=== PATIENT | female | born 1970 | race Caucasian/White ===

== ENCOUNTER → 2016-10-07 | Outpatient (CLI) | payer OTHER ==
[~2016-10-07] MED LIST: ALPR-475 PO; AMOX1TAB64 PO; CEPH-368 PO; IBUP200C PO; ONDA4TAB7 PO; OXYC-229 PO; OXYC1TAB7 PO; OXYC5CAP4 PO; SERT50TA PO; SINCALIDE (KINEVAC) 5 MCG ONE; SULF1TAB24 PO
== END | disposition home or self-care (01) ==
LOC: PETCFH 07:55
PROVIDERS: ATTEND Specialist
DX: C50.012 Malignant neoplasm of nipple and areola, left female breast (principal)
CPT/HCPCS: 78306; A9503; J2805

== ENCOUNTER → 2016-10-07 | Outpatient (CLI) | payer OTHER ==
[~2016-10-07] MED LIST changes: +OMNIPAQUE 350 MG/ML, 100ML BOTTLE ONE; -SINCALIDE (KINEVAC) 5 MCG ONE
== END | disposition home or self-care (01) ==
LOC: CFH 07:58
PROVIDERS: ATTEND Specialist
DX: C50.012 Malignant neoplasm of nipple and areola, left female breast (principal); N83.202 Unspecified ovarian cyst, left side; K43.9 Ventral hernia without obstruction or gangrene; Z90.13 Acquired absence of bilateral breasts and nipples
CPT/HCPCS: 71260; 74177; Q9967

== ENCOUNTER → 2017-07-23 | Outpatient (CLI) | payer OTHER ==
[~2017-07-23] MED LIST changes: -IBUP200C PO; +IBUP200C5 PO; -OMNIPAQUE 350 MG/ML, 100ML BOTTLE ONE; -OXYC-229 PO; +OXYC-307 PO; +OXYC5CAP2 PO; -OXYC5CAP4 PO
== END | disposition home or self-care (01) ==
LOC: PETCFH 09:28
PROVIDERS: ATTEND Specialist
DX: C50.012 Malignant neoplasm of nipple and areola, left female breast (principal); M85.9 Disorder of bone density and structure, unspecified; Z15.01 Genetic susceptibility to malignant neoplasm of breast
CPT/HCPCS: 78306; A9503

== ENCOUNTER → 2017-07-23 | Outpatient (CLI) | payer OTHER ==
[~2017-07-23] MED LIST changes: +OMNIPAQUE 350 MG/ML, 100ML BOTTLE ONE
== END | disposition home or self-care (01) ==
LOC: CFH 09:30
PROVIDERS: ATTEND Specialist
DX: R92.8 Other abnormal and inconclusive findings on diagnostic imaging of breast (principal); K76.89 Other specified diseases of liver; M85.9 Disorder of bone density and structure, unspecified; C50.012 Malignant neoplasm of nipple and areola, left female breast; Z15.01 Genetic susceptibility to malignant neoplasm of breast
CPT/HCPCS: 71260; 74177; Q9967

== ENCOUNTER → 2017-07-25 | Outpatient (CLI) | payer OTHER ==
[~2017-07-25] MED LIST changes: -OMNIPAQUE 350 MG/ML, 100ML BOTTLE ONE
== END ==
LOC: CFH 13:33
PROVIDERS: ATTEND Surgery
DX: N63.20 Unspecified lump in the left breast, unspecified quadrant (principal); Z90.13 Acquired absence of bilateral breasts and nipples

== ENCOUNTER 2017-08-27 11:32 | Day surgery (SDC) | payer OTHER ==
[~2017-08-27] VITALS: Ht 157.5 cm; Wt 99.5 kg
[2017-08-27] MEDS ORDERED: LACTATED RINGERS 1,000 ML IV SCH (12:16)
[2017-08-27] MEDS ORDERED: SERT100T PO (12:21)
[2017-08-27] MEDS ORDERED: GABA600T2 PO (12:21)
[2017-08-27] MEDS ORDERED: HYDR-3237 PO (12:21)
[2017-08-27 12:24] VITALS: BP 128/87
[2017-08-27] MEDS ORDERED: PLEASE ENTER HEIGHT AND WEIGHT MC SCH (12:30)
[2017-08-27] MEDS ORDERED: HEPARIN 1,000 UNITS/ML, 10ML ONE (12:57)
[2017-08-27] MEDS ORDERED: EPINEPHRINE 1 MG/ML, 1ML ONE (12:57)
[2017-08-27] MEDS ORDERED: BUPIVACAINE/PF 0.5% ONE (12:57)
[2017-08-27] MEDS ORDERED: DEXAMETHASONE 4 MG/ML, 1ML ONE (13:45)
[2017-08-27] MEDS ORDERED: PROPOFOL 10 MG/ML, 20ML ONE ×2 (13:45→14:27)
[2017-08-27] MEDS ORDERED: CEFAZOLIN 1,000 MG ONE (13:45)
[2017-08-27] MEDS ORDERED: ONDANSETRON 2MG/ML, 2ML ONE (13:45)
[2017-08-27] MEDS ORDERED: BUPIVACAINE/PF-EPI 0.5% 1:200K IM ONE (14:08)
[2017-08-27] MEDS ORDERED: HEPARIN 1,000 UNITS/ML, 10ML PERMACATH ONE (14:08)
[2017-08-27] MEDS ORDERED: ACETAMINOPHEN 325 MG TABLET PO PRN (15:00)
[2017-08-27] MEDS ORDERED: morphine SULFATE 10 MG/ML, 1ML IV PRN (15:00)
[2017-08-27] MEDS ORDERED: HYDROcodone/APAP 7.5-325MG/15ML UDC PO PRN (15:00)
[2017-08-27] MEDS ORDERED: OXYcodone 5 MG/5 ML ORAL.SOL UDC PO PRN (15:00)
[2017-08-27] MEDS ORDERED: HYDROmorphone 1 MG/ML, 1ML IV PRN (15:00)
[2017-08-27] MEDS ORDERED: MEPERIDINE/PF 25MG/0.5ML IVPush PRN (15:00)
[2017-08-27] MEDS ORDERED: KETOROLAC 30 MG/1 ML IV PRN ×2 (15:00)
[2017-08-27] MEDS ORDERED: FENTANYL PF 100 MCG/2ML IV PRN (15:00)
[2017-08-27] MEDS ORDERED: EPHEDRINE 50 MG/ML, 1ML ONE (16:09)
[2017-08-27] MEDS ORDERED: SUCCINYLCHOLINE 20 MG/ML, 10ML ONE (16:09)
== END 2017-08-27 16:00 | disposition home or self-care (01) ==
LOC: OUT 11:32
PROVIDERS: ATTEND Surgery
DX: Z45.2 Encounter for adjustment and management of vascular access device (principal); C50.919 Malignant neoplasm of unspecified site of unspecified female breast; Z88.8 Allergy status to other drugs, medicaments and biological substances; Z98.890 Other specified postprocedural states; Z87.891 Personal history of nicotine dependence
CPT/HCPCS: 36561; 71045; 77001; C1788; J0171; J0330; J0690; J1100; J1644; J2405; J2704; J3490; J7120

== ENCOUNTER → 2017-10-03 | Outpatient (CLI) | payer OTHER ==
[~2017-10-03] MED LIST changes: +GABA600T2 PO; +HYDR-3237 PO; +SERT100T PO
== END ==
LOC: ROC 08:26
PROVIDERS: ATTEND Radiology Radiation Oncology
DX: Z02.9 Encounter for administrative examinations, unspecified (principal)

== ENCOUNTER → 2017-10-06 | Outpatient (CLI) | payer OTHER | LOC: RAD 15:28 | PROVIDERS: ATTEND Specialist | DX: M79.89 Other specified soft tissue disorders (principal); C50.012 Malignant neoplasm of nipple and areola, left female breast ==

== ENCOUNTER → 2017-10-23 | Outpatient (CLI) | payer OTHER | END | disposition home or self-care (01) | LOC: RAD 09:19 | PROVIDERS: ATTEND Specialist | DX: R16.2 Hepatomegaly with splenomegaly, not elsewhere classified (principal); C50.012 Malignant neoplasm of nipple and areola, left female breast | CPT/HCPCS: 76705 ==

== ENCOUNTER → 2017-10-28 | Outpatient (CLI) | payer OTHER ==
[~2017-10-28] MED LIST changes: +OMNIPAQUE 350 MG/ML, 100ML BOTTLE ONE
== END | disposition home or self-care (01) ==
LOC: RAD 12:01
PROVIDERS: ATTEND Specialist
DX: R92.2 Inconclusive mammogram (principal); R16.1 Splenomegaly, not elsewhere classified; M85.9 Disorder of bone density and structure, unspecified; C77.3 Secondary and unspecified malignant neoplasm of axilla and upper limb lymph nodes; C50.012 Malignant neoplasm of nipple and areola, left female breast; D70.1 Agranulocytosis secondary to cancer chemotherapy
CPT/HCPCS: 71260; 74160; J1642; Q9967

== ENCOUNTER → 2017-11-18 | Outpatient (CLI) | payer OTHER ==
[~2017-11-18] MED LIST changes: -OMNIPAQUE 350 MG/ML, 100ML BOTTLE ONE
== END | disposition home or self-care (01) ==
LOC: RAD 09:55
PROVIDERS: ATTEND Specialist
DX: R16.2 Hepatomegaly with splenomegaly, not elsewhere classified (principal); C50.012 Malignant neoplasm of nipple and areola, left female breast
CPT/HCPCS: 76700

== ENCOUNTER 2017-12-02 12:03 | Emergency (ER) | payer OTHER ==
[~2017-12-02] VITALS: Ht 157.5 cm; Wt 101.4 kg
[2017-12-02] VITALS (8 sets, daily range): BP systolic 112–128; BP diastolic 54–78
[2017-12-02 13:22] LABS: MEAN CORPUSCULAR HEMOGLOBIN 32.5 pg (27.0-34.8); MEAN CORPUSCULAR VOLUME 92.7 fL (80-100); RED CELL DISTRIBUTION WIDTH 21.7 % (9.6-15.2)
[2017-12-02 13:28] LABS: ALANINE AMINOTRANSFERASE 55 U/L (12-78); ALBUMIN 3.6 g/dL (3.4-5.0); ANION GAP 8 mmol/L (5-15); CALCIUM 8.5 mg/dL (8.5-10.1); CHLORIDE 110 mmol/L (98-107)
[2017-12-02] MEDS ORDERED: ACETAMINOPHEN 325 MG TABLET PO ONE (13:30)
[2017-12-02] MEDS ORDERED: DIPHENHYDRAMINE 50 MG/ML, 1ML IVPush ONE (13:30)
[2017-12-02 13:31] LABS: ALKALINE PHOSPHATASE 142 U/L (45-117); BILIRUBIN,TOTAL 0.5 mg/dL (0.2-1.0); CREATININE 0.72 mg/dL (0.55-1.02); TOTAL PROTEIN 6.4 g/dL (6.4-8.2)
[2017-12-02] MEDS ORDERED: DIPHENHYDRAMINE 50 MG/ML, 1ML ONE (13:40)
[2017-12-02] MEDS ORDERED: ACETAMINOPHEN 325 MG TABLET ONE (13:40)
[2017-12-02 13:45] LABS: MD YES; MEAN PLATELET VOLUME 5.7 fL (7.4-10.4); PLATELET COUNT 85 x10^3/uL (130-400)
[2017-12-02 13:48] LABS: ANISOCYTOSIS 2+; BASOS#(MANUAL) 0.02 x10^3/uL (0-0.1); BASOS% (MANUAL) 1 % (0-1); EOS#(MANUAL) 0.02 x10^3/uL (0.0-0.4); EOS% (MANUAL) 1 % (1-7); LYMPH#(MANUAL) 0.72 x10^3/uL (1-3.4); LYMPHS% (MANUAL) 30 % (22-44); MONOS% (MANUAL) 4 % (2-9); OVALOCYTES 1+; SEG#(MANUAL) 1.54 x10^3/uL (1.8-6.8); SEGS% (MANUAL) 64 % (42-75); TEAR DROPS 1+
[2017-12-02 13:49] LABS: <PLATELET ESTIMATE> DECREASED; SMALL PLATELETS 1+
[2017-12-02 13:50] LABS: TOXIC GRAN 1+
== END 2017-12-02 18:05 | disposition home or self-care (01) ==
LOC: ED 13:34
DX: D61.1 Drug-induced aplastic anemia (principal); C50.919 Malignant neoplasm of unspecified site of unspecified female breast; Z90.10 Acquired absence of unspecified breast and nipple; Z88.8 Allergy status to other drugs, medicaments and biological substances; Z88.6 Allergy status to analgesic agent
CPT/HCPCS: 36415; 36430; 76700; 80053; 85025; 86850; 86900; 86923; 96374; 99285; J1200; P9040

== ENCOUNTER → 2017-12-10 | Outpatient (CLI) | payer OTHER | END | disposition home or self-care (01) | LOC: PETCFH 08:34 | PROVIDERS: ATTEND Specialist | DX: C50.012 Malignant neoplasm of nipple and areola, left female breast (principal) | CPT/HCPCS: 78815; A9552 ==

== ENCOUNTER 2017-12-30 11:49 | Emergency (ER) | payer OTHER ==
[2017-12-30] VITALS (9 sets, daily range): BP systolic 99–123; BP diastolic 43–62
[~2017-12-30] VITALS: Ht 157.5 cm; Wt 101.0 kg
[~2017-12-30 11:49] MED LIST changes: +IBUP-1623 PO; -IBUP200C5 PO
[2017-12-30] MEDS ORDERED: SODIUM CHLORIDE 0.9% 500 ML IV ONE (12:13)
[2017-12-30 13:51] LABS: MEAN CORPUSCULAR HEMOGLOBIN 33.2 pg (27.0-34.8); MEAN CORPUSCULAR HGB CONC 34.7 g/dL (32.4-35.8); MEAN CORPUSCULAR VOLUME 95.8 fL (80-100); MEAN PLATELET VOLUME 10.1 fL (7.4-10.4); RED BLOOD COUNT 1.98 x10^6/uL (3.82-5.3); RED CELL DISTRIBUTION WIDTH 21.5 % (9.6-15.2)
[2017-12-30 13:54] LABS: PLATELET COUNT 9 x10^3/uL (130-400)
[2017-12-30] MEDS ORDERED: ACETAMINOPHEN 500 MG TABLET ONE (13:55)
[2017-12-30] MEDS ORDERED: DIPHENHYDRAMINE 50 MG/ML, 1ML ONE (13:55)
[2017-12-30] MEDS ORDERED: DIPHENHYDRAMINE 25 MG CAPSULE ONE (13:56)
[2017-12-30 14:00] LABS: MD SCAN
[2017-12-30] MEDS ORDERED: ACETAMINOPHEN 500 MG TABLET PO ONE (14:00)
[2017-12-30] MEDS ORDERED: DIPHENHYDRAMINE 50 MG/ML, 1ML IVPush ONE (14:00)
[2017-12-30 14:10] LABS: BASOPHILS # (AUTO) 0.01 x10^3/uL (0-0.1); BASOPHILS % (AUTO) 0 % (0-1); EOSINOPHILS # (AUTO) 0.01 x10^3/uL (0-0.4); EOSINOPHILS % (AUTO) 0 % (1-7); LYMPHOCYTES # (AUTO) 0.81 x10^3/uL (1-3.4); LYMPHOCYTES % (AUTO) 15 % (22-44); MONOCYTES # (AUTO) 0.15 x10^3/uL (0.2-0.8); MONOCYTES % (AUTO) 3 % (2-9); NEUTROPHILS # (AUTO) 4.33 x10^3/uL (1.8-6.8); NEUTROPHILS % (AUTO) 82 % (42-75)
== END 2017-12-30 18:37 | disposition home or self-care (01) ==
LOC: ED 13:49
DX: D64.81 Anemia due to antineoplastic chemotherapy (principal); D69.59 Other secondary thrombocytopenia
CPT/HCPCS: 36415; 85025; 86850; 86900; 86923; 96374; 99284; J1200; P9037; P9040

== ENCOUNTER 2018-01-01 05:45 | Emergency (ER) | payer OTHER ==
[~2018-01-01] VITALS: Ht 157.5 cm; Wt 101.2 kg
[2018-01-01] MEDS ORDERED: PROPARACAINE OPHTH 0.5%, 15ML ONE (06:08)
[2018-01-01 07:07] LABS: ALBUMIN 3.7 g/dL (3.4-5.0); ANION GAP 11 mmol/L (5-15); CALCIUM 8.5 mg/dL (8.5-10.1); CHLORIDE 109 mmol/L (98-107); CREATININE 0.81 mg/dL (0.55-1.02)
[2018-01-01 07:37] VITALS: BP 123/73
[2018-01-01 08:15] LABS: BASOPHILS % (AUTO) 0 % (0-1); EOSINOPHILS # (AUTO) 0.01 x10^3/uL (0-0.4); EOSINOPHILS % (AUTO) 0 % (1-7); LYMPHOCYTES # (AUTO) 0.54 x10^3/uL (1-3.4); LYMPHOCYTES % (AUTO) 13 % (22-44); MD SCAN; MEAN CORPUSCULAR HEMOGLOBIN 33.2 pg (27.0-34.8); MEAN CORPUSCULAR HGB CONC 35.6 g/dL (32.4-35.8); MEAN CORPUSCULAR VOLUME 93.2 fL (80-100); MEAN PLATELET VOLUME 8.5 fL (7.4-10.4); MONOCYTES # (AUTO) 0.23 x10^3/uL (0.2-0.8); MONOCYTES % (AUTO) 6 % (2-9); NEUTROPHILS # (AUTO) 3.39 x10^3/uL (1.8-6.8); NEUTROPHILS % (AUTO) 81 % (42-75); RED BLOOD COUNT 2.56 x10^6/uL (3.82-5.3); RED CELL DISTRIBUTION WIDTH 19.2 % (9.6-15.2)
[2018-01-01 08:19] LABS: PLATELET COUNT 21 x10^3/uL (130-400)
== END 2018-01-01 09:51 | disposition home or self-care (01) ==
LOC: ED 07:59
DX: H20.012 Primary iridocyclitis, left eye (principal); D69.59 Other secondary thrombocytopenia; Z87.891 Personal history of nicotine dependence
CPT/HCPCS: 36415; 71045; 80048; 81373; 81374; 82040; 82164; 85025; 85549; 86480; 86592; 86780; 87798; 99285

== ENCOUNTER → 2018-01-06 | Outpatient (CLI) | payer OTHER ==
[~2018-01-06] MED LIST changes: +GADOBUTROL 10 MMOL/10 ML PFS ONE
== END | disposition home or self-care (01) ==
LOC: CFH 14:53
PROVIDERS: ATTEND Specialist
DX: C50.012 Malignant neoplasm of nipple and areola, left female breast (principal); H54.7 Unspecified visual loss; Z87.891 Personal history of nicotine dependence
CPT/HCPCS: 70553; A9585

== ENCOUNTER 2018-01-25 15:05 | Observation (INO) | payer OTHER ==
[~2018-01-25] VITALS: Ht 157.5 cm; Wt 103.4 kg
[2018-01-25] VITALS (8 sets, daily range): BP systolic 98–138; BP diastolic 61–71
[~2018-01-25 15:05] MED LIST changes: -GADOBUTROL 10 MMOL/10 ML PFS ONE
[2018-01-25] MEDS ORDERED: [UNRECOGNIZED DRUG - CODE] IV (15:59)
[2018-01-25] MEDS ORDERED: GEMC200V IV (15:59)
[2018-01-25 16:06] LABS: ALBUMIN 3.6 g/dL (3.4-5.0); ANION GAP 5 mmol/L (5-15); CALCIUM 8.7 mg/dL (8.5-10.1); CHLORIDE 109 mmol/L (98-107); CREATININE 0.91 mg/dL (0.55-1.02)
[2018-01-25 16:14] LABS: MEAN CORPUSCULAR HEMOGLOBIN 34.8 pg (27.0-34.8); MEAN CORPUSCULAR HGB CONC 35.4 g/dL (32.4-35.8); MEAN CORPUSCULAR VOLUME 98.1 fL (80-100); MEAN PLATELET VOLUME 7.3 fL (7.4-10.4); RED BLOOD COUNT 1.95 x10^6/uL (3.82-5.3); RED CELL DISTRIBUTION WIDTH 22.7 % (9.6-15.2)
[2018-01-25 16:17] LABS: PLATELET COUNT 38 x10^3/uL (130-400)
[2018-01-25 16:35] LABS: MD YES
[2018-01-25 16:39] LABS: ANISOCYTOSIS 1+; BAND#(MANUAL) 1.95 x10^3/uL; BANDS%(MANUAL) 25 % (0-7); LYMPH#(MANUAL) 0.47 x10^3/uL (1-3.4); LYMPHS% (MANUAL) 6 % (22-44); MONOS#(MANUAL) 0.16 x10^3/uL (0.3-2.7); MONOS% (MANUAL) 2 % (2-9); SEG#(MANUAL) 5.23 x10^3/uL (1.8-6.8); SEGS% (MANUAL) 67 % (42-75)
[2018-01-25 16:40] LABS: OVALOCYTES 1+
[2018-01-25 16:41] LABS: TOXIC GRAN 2+
[2018-01-25 16:42] LABS: <PLATELET ESTIMATE> DECREASED; <PLT MORPHOLOGY> NORMAL PLT MORPH; POLYCHROMASIA 1+
[2018-01-25] MEDS ORDERED: LABETALOL 5MG/ML, 20ML IVPush PRN (18:00)
[2018-01-25] MEDS ORDERED: DOCUSATE 100 MG CAPSULE PO PRN (18:00)
[2018-01-25] MEDS ORDERED: ZOLPIDEM 5MG TABLET PO PRN (18:00)
[2018-01-25] MEDS ORDERED: ONDANSETRON ODT 4 MG PO PRN (18:00)
[2018-01-25] MEDS ORDERED: ACETAMINOPHEN 325 MG TABLET PO PRN (18:00)
[2018-01-25] MEDS ORDERED: HYDROcodone/APAP 5/325 TABLET PO SCH (21:00)
[2018-01-25] MEDS: GABAPENTIN 300 MG CAPSULE PO SCH (22:22)
[2018-01-25] MEDS: FAMOTIDINE 20 MG TABLET PO SCH (22:22)
[2018-01-25] MEDS: HYDROcodone/APAP 10/325 MG TABLET PO PRN (22:22)
[2018-01-26] VITALS (10 sets, daily range): BP systolic 98–116; BP diastolic 58–72
[2018-01-26] MEDS: HYDROcodone/APAP 10/325 MG TABLET PO PRN ×2 (05:26→10:09)
[2018-01-26 05:48] LABS: ANION GAP 7 mmol/L (5-15); CALCIUM 8.7 mg/dL (8.5-10.1); CHLORIDE 110 mmol/L (98-107)
[2018-01-26 05:50] LABS: CREATININE 0.89 mg/dL (0.55-1.02)
[2018-01-26 05:58] LABS: MEAN CORPUSCULAR HEMOGLOBIN 33.8 pg (27.0-34.8); MEAN CORPUSCULAR VOLUME 96.3 fL (80-100); RED BLOOD COUNT 2.37 x10^6/uL (3.82-5.3); RED CELL DISTRIBUTION WIDTH 21.7 % (9.6-15.2)
[2018-01-26 06:00] LABS: MEAN PLATELET VOLUME 9.3 fL (7.4-10.4); PLATELET COUNT 25 x10^3/uL (130-400)
[2018-01-26 06:14] LABS: MD YES
[2018-01-26 06:16] LABS: ANISOCYTOSIS 1+; BAND#(MANUAL) 0.51 x10^3/uL; BANDS%(MANUAL) 6 % (0-7); LYMPH#(MANUAL) 0.94 x10^3/uL (1-3.4); LYMPHS% (MANUAL) 11 % (22-44); MONOS#(MANUAL) 0.34 x10^3/uL (0.3-2.7); MONOS% (MANUAL) 4 % (2-9); SEG#(MANUAL) 6.72 x10^3/uL (1.8-6.8); SEGS% (MANUAL) 79 % (42-75)
[2018-01-26 06:17] LABS: <PLATELET ESTIMATE> DECREASED; <PLT MORPHOLOGY> NORMAL PLT MORPH; OVALOCYTES 1+
[2018-01-26 06:18] LABS: TOXIC GRAN 1+
[2018-01-26] MEDS ORDERED: SERTRALINE 100MG TABLET PO SCH (09:00)
[2018-01-26] MEDS: GABAPENTIN 300 MG CAPSULE PO SCH (10:00)
[2018-01-26] MEDS: FAMOTIDINE 20 MG TABLET PO SCH (10:00)
== END 2018-01-26 16:58 | disposition home or self-care (01) ==
LOC: ED 16:33 → INTOOBSV 16:50 → EDIP 16:50 → 3NW 18:03
PROVIDERS: ADMIT Internal Medicine; ATTEND Internal Medicine
DX: D63.8 Anemia in other chronic diseases classified elsewhere (principal); F41.9 Anxiety disorder, unspecified; C50.919 Malignant neoplasm of unspecified site of unspecified female breast; E66.9 Obesity, unspecified; Z85.3 Personal history of malignant neoplasm of breast; Z90.13 Acquired absence of bilateral breasts and nipples
CPT/HCPCS: 36415; 36430; 80048; 82040; 85025; 86850; 86900; 86923; 93005; 99285; G0378; P9040

== ENCOUNTER → 2018-01-27 | Outpatient (CLI) | payer OTHER ==
[~2018-01-27] MED LIST changes: +GADOBUTROL 10 MMOL/10 ML VIAL ONE; +GEMC200V IV; +[UNRECOGNIZED DRUG - CODE] IV
== END | disposition home or self-care (01) ==
LOC: CFH 14:42
PROVIDERS: ATTEND Specialist
DX: R22.2 Localized swelling, mass and lump, trunk (principal); C50.012 Malignant neoplasm of nipple and areola, left female breast
CPT/HCPCS: A9585; C8908

== ENCOUNTER 2018-02-18 16:12 | Emergency (ER) | payer OTHER ==
[~2018-02-18] VITALS: Ht 157.5 cm; Wt 102.4 kg
[~2018-02-18 16:12] MED LIST changes: -GADOBUTROL 10 MMOL/10 ML VIAL ONE
[2018-02-18 17:28] LABS: ALBUMIN 3.8 g/dL (3.4-5.0); ANION GAP 10 mmol/L (5-15); CALCIUM 8.8 mg/dL (8.5-10.1); CHLORIDE 108 mmol/L (98-107); CREATININE 0.97 mg/dL (0.55-1.02)
[2018-02-18 17:31] LABS: ALANINE AMINOTRANSFERASE 55 U/L (12-78); ALKALINE PHOSPHATASE 250 U/L (45-117); TOTAL PROTEIN 6.9 g/dL (6.4-8.2)
[2018-02-18 18:47] LABS: MEAN CORPUSCULAR HEMOGLOBIN 35.5 pg (27.0-34.8); MEAN CORPUSCULAR HGB CONC 33.9 g/dL (32.4-35.8); MEAN CORPUSCULAR VOLUME 104.8 fL (80-100); MEAN PLATELET VOLUME 7.6 fL (7.4-10.4); PLATELET COUNT 61 x10^3/uL (130-400); RED BLOOD COUNT 2.23 x10^6/uL (3.82-5.3); RED CELL DISTRIBUTION WIDTH 27.6 % (9.6-15.2)
[2018-02-18 18:48] LABS: MD YES
[2018-02-18 18:49] LABS: BANDS%(MANUAL) 11 % (0-7); LYMPH#(MANUAL) 1.15 x10^3/uL (1-3.4); LYMPHS% (MANUAL) 3 % (22-44); METAMYELOCYTES# (MANUAL) 0.76 x10^3/uL (0-0); METAMYELOCYTES% (MANUAL) 2 % (0-1); MONOS#(MANUAL) 1.53 x10^3/uL (0.3-2.7); MONOS% (MANUAL) 4 % (2-9); SEG#(MANUAL) 30.56 x10^3/uL (1.8-6.8); SEGS% (MANUAL) 80 % (42-75)
[2018-02-18 18:50] LABS: ANISOCYTOSIS 2+; MICROCYTOSIS 1+; OVALOCYTES 1+; POLYCHROMASIA 1+
[2018-02-18 18:51] LABS: <PLATELET ESTIMATE> DECREASED; <PLT MORPHOLOGY> NORMAL PLT MORPH; TEAR DROPS 1+; TOXIC GRAN 1+
[2018-02-18 20:24] VITALS: BP 116/53
[2018-02-18 20:40] VITALS: BP 114/56
[2018-02-18 22:15] VITALS: BP 131/60
[2018-02-18 22:31] VITALS: BP 131/60
[2018-02-18 22:45] VITALS: BP 214/54
[2018-02-18 23:20] VITALS: BP 125/74
[2018-02-19] VITALS: BP 131/74
== END 2018-02-19 00:07 | disposition home or self-care (01) ==
LOC: ED 18:50
DX: D64.81 Anemia due to antineoplastic chemotherapy (principal); C50.919 Malignant neoplasm of unspecified site of unspecified female breast
CPT/HCPCS: 36415; 36430; 80053; 85025; 86850; 86900; 86923; 99285; P9040

== ENCOUNTER 2018-03-15 16:59 | Inpatient (IN) | payer OTHER ==
[~2018-03-15] VITALS: Ht 157.5 cm; Wt 104.5 kg
[2018-03-15] MEDS ORDERED: AMPICILLIN/SULBACTAM 3 GM in SODIUM CHLORIDE 0.9% 100 ML IVPB ONE (18:00)
[2018-03-15] MEDS ORDERED: MORPHINE SULFATE 4 MG/ML, 1ML ONE ×2 (18:35→20:33)
[2018-03-15] MEDS: MORPHINE SULFATE 4 MG/ML, 1ML IVPush PRN ×2 (18:40→20:39)
[2018-03-15 18:47] LABS: BASOPHILS # (AUTO) 0.02 x10^3/uL (0-0.1); BASOPHILS % (AUTO) 0 % (0-1); EOSINOPHILS # (AUTO) 0.06 x10^3/uL (0-0.4); EOSINOPHILS % (AUTO) 1 % (1-7); LYMPHOCYTES % (AUTO) 12 % (22-44); MD NO; MEAN CORPUSCULAR HEMOGLOBIN 33.8 pg (27.0-34.8); MEAN CORPUSCULAR HGB CONC 33.9 g/dL (32.4-35.8); MEAN CORPUSCULAR VOLUME 99.7 fL (80-100); MEAN PLATELET VOLUME 6.7 fL (7.4-10.4); MONOCYTES # (AUTO) 0.13 x10^3/uL (0.2-0.8); MONOCYTES % (AUTO) 2 % (2-9); NEUTROPHILS # (AUTO) 5.93 x10^3/uL (1.8-6.8); NEUTROPHILS % (AUTO) 86 % (42-75); PLATELET COUNT 161 x10^3/uL (130-400); RED BLOOD COUNT 3.42 x10^6/uL (3.82-5.3); RED CELL DISTRIBUTION WIDTH 19.3 % (9.6-15.2)
[2018-03-15 18:56] LABS: ALBUMIN 3.9 g/dL (3.4-5.0); ANION GAP 7 mmol/L (5-15); CALCIUM 8.8 mg/dL (8.5-10.1); CHLORIDE 107 mmol/L (98-107); CREATININE 0.77 mg/dL (0.55-1.02)
[2018-03-15 19:00] LABS: TROPONIN I < 0.015 ng/mL (0.000-0.045)
[2018-03-15] MEDS ORDERED: VANCOMYCIN 2,000 MG in SODIUM CHLORIDE 0.9% 500 ML IV ONE (19:00)
[2018-03-15] MEDS ORDERED: VANCOMYCIN PER PHARMACY MC ONE (19:00)
[2018-03-15] MEDS ORDERED: SODIUM CHLORIDE FLUSH 10ML SYR IVF ONE (19:00)
[2018-03-15] MEDS ORDERED: OMNIPAQUE 350 MG/ML, 100ML BOTTLE ONE (20:00)
[2018-03-15] MEDS ORDERED: POLYETHYLENE GLYCOL 17 GM PACKET PO PRN (21:30)
[2018-03-15] MEDS ORDERED: PHARMACOKINETIC CONSULTATION MC ONE (21:30)
[2018-03-15] MEDS ORDERED: HYDROcodone/APAP 5/325 TABLET PO PRN (21:30)
[2018-03-15] MEDS ORDERED: PHARMACOKINETIC MONITORING MC PRN (21:30)
[2018-03-15] MEDS ORDERED: CEFAZOLIN 1,000 MG IVPB SCH (21:30)
[2018-03-15] MEDS ORDERED: DOCUSATE 100 MG CAPSULE PO PRN (21:30)
[2018-03-15] MEDS ORDERED: VANCOMYCIN PER PHARMACY MC PRN (21:30)
[2018-03-15] MEDS ORDERED: ONDANSETRON 2MG/ML, 2ML IVPush PRN (21:30)
[2018-03-15] MEDS: ENOXAPARIN 40 MG/0.4 ML SQ SCH (21:35)
[2018-03-15 21:45] VITALS: BP 120/55
[2018-03-15] MEDS: CEFAZOLIN PMX 1GM/50ML 50 ML IV SCH (23:01)
[2018-03-15] MEDS: SODIUM CHLORIDE 0.9% 1,000 ML IV SCH (23:36)
[2018-03-15] MEDS: morphine SULFATE 10 MG/ML, 1ML IVPush PRN (23:37)
[2018-03-16 01:22] VITALS: BP 126/62
[2018-03-16] MEDS: morphine SULFATE 10 MG/ML, 1ML IVPush PRN ×4 (03:47→19:13)
[2018-03-16 04:16] LABS: BASOPHILS # (AUTO) 0.01 x10^3/uL (0-0.1); BASOPHILS % (AUTO) 0 % (0-1); EOSINOPHILS # (AUTO) 0.05 x10^3/uL (0-0.4); EOSINOPHILS % (AUTO) 1 % (1-7); LYMPHOCYTES # (AUTO) 0.94 x10^3/uL (1-3.4); LYMPHOCYTES % (AUTO) 19 % (22-44); MD NO; MEAN CORPUSCULAR HGB CONC 33.9 g/dL (32.4-35.8); MEAN CORPUSCULAR VOLUME 100.2 fL (80-100); MEAN PLATELET VOLUME 6.6 fL (7.4-10.4); MONOCYTES # (AUTO) 0.09 x10^3/uL (0.2-0.8); MONOCYTES % (AUTO) 2 % (2-9); NEUTROPHILS # (AUTO) 3.89 x10^3/uL (1.8-6.8); NEUTROPHILS % (AUTO) 78 % (42-75); PLATELET COUNT 157 x10^3/uL (130-400); RED BLOOD COUNT 3.08 x10^6/uL (3.82-5.3); RED CELL DISTRIBUTION WIDTH 19.3 % (9.6-15.2)
[2018-03-16 04:26] LABS: ALANINE AMINOTRANSFERASE 56 U/L (12-78); ALBUMIN 3.3 g/dL (3.4-5.0); ANION GAP 9 mmol/L (5-15); CALCIUM 8.1 mg/dL (8.5-10.1); CHLORIDE 107 mmol/L (98-107); CREATININE 0.82 mg/dL (0.55-1.02)
[2018-03-16 04:28] LABS: ALKALINE PHOSPHATASE 110 U/L (45-117); BILIRUBIN,TOTAL 0.7 mg/dL (0.2-1.0); TOTAL PROTEIN 6.5 g/dL (6.4-8.2)
[2018-03-16] MEDS: SODIUM CHLORIDE 0.9% 1,000 ML IV SCH ×2 (07:27→21:36)
[2018-03-16] MEDS: CEFAZOLIN PMX 1GM/50ML 50 ML IV SCH ×2 (07:27→16:16)
[2018-03-16] MEDS: SERTRALINE 100MG TABLET PO SCH (07:39)
[2018-03-16] MEDS: GABAPENTIN 300 MG CAPSULE PO SCH ×2 (07:39→19:14)
[2018-03-16 07:53] VITALS: BP 114/65
[2018-03-16 12:42] VITALS: BP 114/53
[2018-03-16] MEDS: VANCOMYCIN 2,000 MG in SODIUM CHLORIDE 0.9% 500 ML IV SCH (13:43)
[2018-03-16] MEDS: HYDROcodone/APAP 10/325 MG TABLET PO PRN ×2 (16:20→22:40)
[2018-03-16 19:24] VITALS: BP 116/54
[2018-03-16] MEDS: ENOXAPARIN 40 MG/0.4 ML SQ SCH (21:47)
[2018-03-17] MEDS: CEFAZOLIN PMX 1GM/50ML 50 ML IV SCH ×4 (00:33→23:59)
[2018-03-17] MEDS: morphine SULFATE 10 MG/ML, 1ML IVPush PRN ×3 (03:20→21:01)
[2018-03-17 03:48] VITALS: BP 121/67
[2018-03-17] MEDS: HYDROcodone/APAP 10/325 MG TABLET PO PRN ×4 (04:19→23:59)
[2018-03-17 07:43] VITALS: BP 118/59
[2018-03-17] MEDS: SODIUM CHLORIDE 0.9% 1,000 ML IV SCH ×2 (08:38→21:00)
[2018-03-17] MEDS: SERTRALINE 100MG TABLET PO SCH (08:39)
[2018-03-17] MEDS: GABAPENTIN 300 MG CAPSULE PO SCH ×2 (08:39→21:00)
[2018-03-17] MEDS: VANCOMYCIN 2,000 MG in SODIUM CHLORIDE 0.9% 500 ML IV SCH (10:13)
[2018-03-17 13:40] VITALS: BP 114/58
[2018-03-17] MEDS: ENOXAPARIN 40 MG/0.4 ML SQ SCH (21:01)
[2018-03-17 21:14] VITALS: BP 121/66
[2018-03-18 04:00] VITALS: BP 112/65
[2018-03-18] MEDS: VANCOMYCIN 2,000 MG in SODIUM CHLORIDE 0.9% 500 ML IV SCH (04:07)
[2018-03-18] MEDS: morphine SULFATE 10 MG/ML, 1ML IVPush PRN (04:15)
[2018-03-18] MEDS: HYDROcodone/APAP 10/325 MG TABLET PO PRN (05:58)
[2018-03-18 07:35] VITALS: BP 123/68
[2018-03-18] MEDS: GABAPENTIN 300 MG CAPSULE PO SCH (08:15)
[2018-03-18] MEDS: SERTRALINE 100MG TABLET PO SCH (08:15)
[2018-03-18] MEDS: CEFAZOLIN PMX 1GM/50ML 50 ML IV SCH (08:18)
[2018-03-18] MEDS ORDERED: AMOX1TAB64 PO (08:22)
[2018-03-18] MEDS ORDERED: DOXY100T PO (08:22)
[2018-03-18] MEDS ORDERED: ACID1TAB3 PO (08:22)
== END 2018-03-18 11:45 | disposition home or self-care (01) | DRG 603 ==
LOC: ED 18:46 → EDIP 20:33 → 3NW 21:19
PROVIDERS: ADMIT Internal Medicine; ATTEND Internal Medicine
DX: L03.114 Cellulitis of left upper limb (principal); C50.919 Malignant neoplasm of unspecified site of unspecified female breast; D53.9 Nutritional anemia, unspecified; F41.8 Other specified anxiety disorders; G89.3 Neoplasm related pain (acute) (chronic); G89.4 Chronic pain syndrome; Z80.3 Family history of malignant neoplasm of breast; Z85.3 Personal history of malignant neoplasm of breast; Z86.14 Personal history of Methicillin resistant Staphylococcus aureus infection; Z90.13 Acquired absence of bilateral breasts and nipples; Z88.8 Allergy status to other drugs, medicaments and biological substances
CPT/HCPCS: 36415; 71045; 71275; 80048; 80053; 80202; 82040; 84484; 85025; 87040; 93005; 96365; 96366; 96375; 96376; 99285; G0378; J0295; J0690; J1650; J3370; Q9967; J2270; J7030; J7040

== ENCOUNTER 2018-04-04 06:55 | Emergency (ER) | payer OTHER ==
[~2018-04-04] VITALS: Ht 157.5 cm; Wt 103.0 kg
[~2018-04-04 06:55] MED LIST changes: +ACID1TAB3 PO; +DOXY100T PO
[2018-04-04] MEDS ORDERED: MORPHINE PO (07:26)
[2018-04-04] MEDS ORDERED: SODIUM CHLORIDE FLUSH 10ML SYR IVF ONE (07:30)
[2018-04-04] MEDS ORDERED: HYDROmorphone 2 MG/ML, 1ML ONE ×2 (07:43→11:26)
[2018-04-04] MEDS: HYDROmorphone 2 MG/ML, 1ML IVPush PRN ×2 (08:45→11:33)
[2018-04-04 09:15] LABS: ALANINE AMINOTRANSFERASE 46 U/L (12-78); ALBUMIN 3.7 g/dL (3.4-5.0); ANION GAP 7 mmol/L (5-15); CALCIUM 8.9 mg/dL (8.5-10.1); CHLORIDE 104 mmol/L (98-107); CREATININE 0.99 mg/dL (0.55-1.02)
[2018-04-04 09:19] LABS: ALKALINE PHOSPHATASE 116 U/L (45-117); BILIRUBIN,TOTAL 0.5 mg/dL (0.2-1.0); TOTAL PROTEIN 6.5 g/dL (6.4-8.2)
[2018-04-04 09:27] LABS: BASOPHILS # (AUTO) 0.01 x10^3/uL (0-0.1); BASOPHILS % (AUTO) 0 % (0-1); EOSINOPHILS # (AUTO) 0.07 x10^3/uL (0-0.4); EOSINOPHILS % (AUTO) 2 % (1-7); LYMPHOCYTES # (AUTO) 0.86 x10^3/uL (1-3.4); LYMPHOCYTES % (AUTO) 27 % (22-44); MD SCAN; MEAN CORPUSCULAR HEMOGLOBIN 32.6 pg (27.0-34.8); MEAN CORPUSCULAR HGB CONC 33.5 g/dL (32.4-35.8); MEAN CORPUSCULAR VOLUME 97.5 fL (80-100); MEAN PLATELET VOLUME 7.1 fL (7.4-10.4); MONOCYTES # (AUTO) 0.42 x10^3/uL (0.2-0.8); MONOCYTES % (AUTO) 13 % (2-9); NEUTROPHILS # (AUTO) 1.85 x10^3/uL (1.8-6.8); NEUTROPHILS % (AUTO) 58 % (42-75); PLATELET COUNT 82 x10^3/uL (130-400); RED BLOOD COUNT 3.34 x10^6/uL (3.82-5.3); RED CELL DISTRIBUTION WIDTH 17.6 % (9.6-15.2)
[2018-04-04] MEDS ORDERED: OMNIPAQUE 350 MG/ML, 100ML BOTTLE ONE (10:50)
[2018-04-04] MEDS ORDERED: HYDROmorphone 2 MG/ML, 1ML IVPush PRN (11:30)
[2018-04-04 11:48] VITALS: BP 126/67
== END 2018-04-04 11:55 | disposition home or self-care (01) ==
LOC: ED 09:45
DX: M25.512 Pain in left shoulder (principal); G62.9 Polyneuropathy, unspecified; R07.89 Other chest pain; Z85.3 Personal history of malignant neoplasm of breast
CPT/HCPCS: 36415; 71260; 80053; 83880; 85025; 96374; 96376; 99285; J1170; Q9967

== ENCOUNTER → 2018-04-10 | Outpatient (CLI) | payer OTHER ==
[~2018-04-10] MED LIST changes: +HYDR-3245 PO; +IMIP25TA3 PO; +METH4TAB2 PO; +METH5TAB2 PO; +MORPHINE PO; +PREG25CA PO
== END | disposition home or self-care (01) ==
LOC: STAR 12:41
PROVIDERS: ATTEND Specialist
DX: Z01.818 Encounter for other preprocedural examination (principal); C50.012 Malignant neoplasm of nipple and areola, left female breast; M85.9 Disorder of bone density and structure, unspecified; Z15.01 Genetic susceptibility to malignant neoplasm of breast; C77.3 Secondary and unspecified malignant neoplasm of axilla and upper limb lymph nodes; D70.1 Agranulocytosis secondary to cancer chemotherapy; R16.1 Splenomegaly, not elsewhere classified; R10.12 Left upper quadrant pain
CPT/HCPCS: 93005

== ENCOUNTER 2018-04-14 16:21 | Inpatient (IN) | payer OTHER ==
[~2018-04-14] VITALS: Ht 157.5 cm; Wt 105.3 kg
[~2018-04-14 16:21] MED LIST changes: -HYDR-3245 PO; -IMIP25TA3 PO; -METH4TAB2 PO; -METH5TAB2 PO; -PREG25CA PO
[2018-04-14] MEDS ORDERED: HYDROmorphone 2 MG/ML, 1ML ONE (16:57)
[2018-04-14] MEDS ORDERED: HYDROmorphone 1 MG/ML, 1ML IV ONE (17:00)
[2018-04-14 17:26] LABS: BASOPHILS # (AUTO) 0.02 x10^3/uL (0-0.1); BASOPHILS % (AUTO) 1 % (0-1); EOSINOPHILS # (AUTO) 0.06 x10^3/uL (0-0.4); EOSINOPHILS % (AUTO) 1 % (1-7); LYMPHOCYTES # (AUTO) 0.73 x10^3/uL (1-3.4); LYMPHOCYTES % (AUTO) 17 % (22-44); MD NO; MEAN CORPUSCULAR HEMOGLOBIN 32.8 pg (27.0-34.8); MEAN CORPUSCULAR VOLUME 96.6 fL (80-100); MEAN PLATELET VOLUME 6.6 fL (7.4-10.4); MONOCYTES # (AUTO) 0.38 x10^3/uL (0.2-0.8); MONOCYTES % (AUTO) 9 % (2-9); NEUTROPHILS # (AUTO) 3.01 x10^3/uL (1.8-6.8); NEUTROPHILS % (AUTO) 72 % (42-75); PLATELET COUNT 207 x10^3/uL (130-400); RED BLOOD COUNT 3.57 x10^6/uL (3.82-5.3)
[2018-04-14 17:34] LABS: ALBUMIN 3.4 g/dL (3.4-5.0); ANION GAP 7 mmol/L (5-15); CALCIUM 8.5 mg/dL (8.5-10.1); CHLORIDE 108 mmol/L (98-107); CREATININE 0.95 mg/dL (0.55-1.02)
[2018-04-14] MEDS ORDERED: ONDANSETRON ODT 4 MG PO PRN (20:00)
[2018-04-14 20:06] VITALS: BP 163/81
[2018-04-14 20:11] VITALS: BP 141/67
[2018-04-14] MEDS: HYDROmorphone 2 MG/ML, 1ML IVPush PRN ×2 (20:42→21:44)
[2018-04-14] MEDS ORDERED: DEXAMETHASONE 4 MG/ML, 5ML IVPush ONE (21:00)
[2018-04-14] MEDS ORDERED: IMIPRAMINE 10 MG TABLET PO SCH (21:00)
[2018-04-14] MEDS ORDERED: IMIPRAMINE 25 MG TABLET PO SCH ×2 (21:00)
[2018-04-14] MEDS ORDERED: DEXAMETHASONE 4 MG/ML, 1ML ONE (21:18)
[2018-04-14] MEDS: GABAPENTIN 300 MG CAPSULE PO SCH (21:30)
[2018-04-14] MEDS: DICLOFENAC SODIUM 75 MG TABLET.DR PO SCH (21:31)
[2018-04-14] MEDS: ENOXAPARIN 40 MG/0.4 ML SQ SCH (21:32)
[2018-04-14] MEDS ORDERED: HYDR-3245 PO (22:25)
[2018-04-15] MEDS: HYDROmorphone 2 MG/ML, 1ML IVPush PRN ×5 (00:43→13:51)
[2018-04-15 01:01] VITALS: BP 130/79
[2018-04-15 06:36] VITALS: BP 107/65
[2018-04-15] MEDS: DEXAMETHASONE 4 MG/ML, 1ML IVPush SCH ×3 (07:51→20:34)
[2018-04-15] MEDS ORDERED: LORazepam 0.5MG TABLET PO ONE (08:00)
[2018-04-15] MEDS: SERTRALINE 100MG TABLET PO SCH (09:23)
[2018-04-15] MEDS: GABAPENTIN 300 MG CAPSULE PO SCH ×3 (09:23→20:34)
[2018-04-15] MEDS: DICLOFENAC SODIUM 75 MG TABLET.DR PO SCH ×2 (09:23→20:34)
[2018-04-15 12:14] VITALS: BP 130/75
[2018-04-15] MEDS ORDERED: GADOBUTROL 10 MMOL/10 ML PFS ONE (12:51)
[2018-04-15] MEDS ORDERED: GABAPENTIN 300 MG CAPSULE PO SCH (16:00)
[2018-04-15] MEDS: METHADONE 5 MG TABLET PO SCH ×2 (16:23→20:36)
[2018-04-15] MEDS: HYDROmorphone 2MG TABLET PO PRN ×2 (18:13→22:36)
[2018-04-15 19:27] VITALS: BP 143/80
[2018-04-15] MEDS: ENOXAPARIN 40 MG/0.4 ML SQ SCH (20:34)
[2018-04-15] MEDS ORDERED: IMIPRAMINE 25 MG TABLET PO SCH (21:00)
[2018-04-15 23:41] VITALS: BP 151/80
[2018-04-16] MEDS: HYDROmorphone 2MG TABLET PO PRN ×4 (02:35→18:25)
[2018-04-16] MEDS: DEXAMETHASONE 4 MG/ML, 1ML IVPush SCH ×3 (02:35→13:56)
[2018-04-16 08:02] VITALS: BP 144/71
[2018-04-16] MEDS ORDERED: LORazepam 2 MG/ML, 1ML IVPush ONE (09:00)
[2018-04-16] MEDS ORDERED: PREGABALIN 25 MG CAPSULE PO SCH (09:00)
[2018-04-16] MEDS: METHADONE 5 MG TABLET PO SCH ×2 (09:32→15:30)
[2018-04-16] MEDS: SERTRALINE 100MG TABLET PO SCH (09:32)
[2018-04-16] MEDS: DICLOFENAC SODIUM 75 MG TABLET.DR PO SCH (09:33)
[2018-04-16] MEDS: GABAPENTIN 300 MG CAPSULE PO SCH ×2 (09:33→15:30)
[2018-04-16] MEDS ORDERED: GADOBUTROL 10 MMOL/10 ML PFS ONE (10:38)
[2018-04-16 13:57] VITALS: BP 123/70
[2018-04-16] MEDS ORDERED: PREG25CA PO (16:19)
[2018-04-16] MEDS ORDERED: IMIP25TA3 PO (16:19)
[2018-04-16] MEDS ORDERED: METH5TAB2 PO (16:19)
[2018-04-16] MEDS ORDERED: METH4TAB2 PO (16:19)
== END 2018-04-16 19:05 | disposition home or self-care (01) | DRG 598 ==
LOC: ED 16:51 → EDIP 18:07 → 3NW 19:36
PROVIDERS: ADMIT Hospitalist; ATTEND Hospitalist
DX: C50.919 Malignant neoplasm of unspecified site of unspecified female breast (principal); G90.512 Complex regional pain syndrome I of left upper limb; E46 Unspecified protein-calorie malnutrition; C79.9 Secondary malignant neoplasm of unspecified site; Z68.41 Body mass index [BMI] 40.0-44.9, adult; E66.9 Obesity, unspecified; F32.9 Major depressive disorder, single episode, unspecified; F41.9 Anxiety disorder, unspecified; Z80.3 Family history of malignant neoplasm of breast; G62.0 Drug-induced polyneuropathy; T45.1X5A Adverse effect of antineoplastic and immunosuppressive drugs, initial encounter; Y92.89 Other specified places as the place of occurrence of the external cause; Z88.8 Allergy status to other drugs, medicaments and biological substances; Z79.899 Other long term (current) drug therapy
CPT/HCPCS: 36415; 70553; 72156; 72157; 80048; 82040; 85025; 93005; 96374; 99285; A9585; G0378; J1100; J1170; J1650; J2060

== ENCOUNTER → 2018-04-27 | Outpatient (CLI) | payer OTHER ==
[~2018-04-27] MED LIST changes: +HYDR-3245 PO; +IMIP25TA3 PO; +METH4TAB2 PO; +METH5TAB2 PO; +PREG25CA PO
== END | disposition home or self-care (01) ==
LOC: STAR 14:09
PROVIDERS: ATTEND Specialist
DX: C50.012 Malignant neoplasm of nipple and areola, left female breast (principal); C77.3 Secondary and unspecified malignant neoplasm of axilla and upper limb lymph nodes; D70.1 Agranulocytosis secondary to cancer chemotherapy; R16.1 Splenomegaly, not elsewhere classified; R10.12 Left upper quadrant pain
CPT/HCPCS: 93005

== ENCOUNTER 2018-05-09 14:11 | Emergency (ER) | payer OTHER ==
[~2018-05-09] VITALS: Ht 157.5 cm; Wt 102.1 kg
[2018-05-09] MEDS ORDERED: HYDROmorphone 2 MG/ML, 1ML IM ONE ×2 (15:00→16:00)
[2018-05-09] MEDS ORDERED: HYDROmorphone 2 MG/ML, 1ML ONE ×2 (15:04→16:15)
[2018-05-09] MEDS ORDERED: DOXYCYCLINE 100MG TABLET ONE (16:47)
[2018-05-09 16:56] VITALS: BP 115/58
[2018-05-09] MEDS ORDERED: DOXYCYCLINE 100MG TABLET PO ONE (17:00)
== END 2018-05-09 17:02 | disposition home or self-care (01) ==
LOC: ED 16:00
DX: L03.114 Cellulitis of left upper limb (principal); G62.9 Polyneuropathy, unspecified; Z90.10 Acquired absence of unspecified breast and nipple; Z86.718 Personal history of other venous thrombosis and embolism; Z98.890 Other specified postprocedural states
CPT/HCPCS: 71045; 76882; 93005; 96372; 99284; J1170

== ENCOUNTER → 2018-06-01 | Outpatient (CLI) | payer OTHER | END | disposition home or self-care (01) | LOC: CLISVCS 11:17 | PROVIDERS: ATTEND Specialist | DX: C50.012 Malignant neoplasm of nipple and areola, left female breast (principal); C77.3 Secondary and unspecified malignant neoplasm of axilla and upper limb lymph nodes; D70.1 Agranulocytosis secondary to cancer chemotherapy | CPT/HCPCS: 93005 ==

== ENCOUNTER → 2018-06-09 | Outpatient (CLI) | payer OTHER | END | disposition home or self-care (01) | LOC: RAD 16:19 | PROVIDERS: ATTEND Nurse Practitioner | DX: I82.622 Acute embolism and thrombosis of deep veins of left upper extremity (principal); Z85.3 Personal history of malignant neoplasm of breast; Z86.718 Personal history of other venous thrombosis and embolism ==

== ENCOUNTER → 2018-06-19 | Outpatient (CLI) | payer OTHER ==
[~2018-06-19] MED LIST changes: +AZIT500T5 PO; +CEFD300C37 PO; +DICL75TA3 PO; -GABA600T2 PO; +GABA600T7 PO; +LIDOCAINE-MPF 1%, 5ML ONE; +METH10TA2 PO; +PREG100C PO; +RIVA20TA PO; +[UNRECOGNIZED DRUG - OTHER]
== END | disposition home or self-care (01) ==
LOC: RAD 16:20
PROVIDERS: ATTEND Specialist
DX: J90 Pleural effusion, not elsewhere classified (principal)
CPT/HCPCS: 32555

== ENCOUNTER → 2018-06-23 | Outpatient (CLI) | payer OTHER | END | disposition home or self-care (01) | LOC: RAD 08:46 | PROVIDERS: ATTEND Specialist | DX: C38.4 Malignant neoplasm of pleura (principal); J91.0 Malignant pleural effusion; F32.9 Major depressive disorder, single episode, unspecified; F41.9 Anxiety disorder, unspecified; Z85.3 Personal history of malignant neoplasm of breast; Z86.718 Personal history of other venous thrombosis and embolism; Z98.890 Other specified postprocedural states; Z88.6 Allergy status to analgesic agent; Z88.1 Allergy status to other antibiotic agents; Z88.8 Allergy status to other drugs, medicaments and biological substances | CPT/HCPCS: 32555 ==

== ENCOUNTER 2018-06-24 09:40 | Inpatient (IN) | payer OTHER ==
[~2018-06-24] VITALS: Ht 157.5 cm; Wt 99.9 kg
[~2018-06-24 09:40] MED LIST changes: -LIDOCAINE-MPF 1%, 5ML ONE
--- NOTE | 2018-06-24 10:18 | NUR ---
LATE NOTE ENTRY FOR 1005: FIRST CONTACT WITH PT: Pt ambulates to room from lobby with family member with steady gait balance. Pt sees Dr. Zamudio for oncology and primary care. Dr. Shah is electrostatic painter. Pt wears 2 L oxygen via nasal cannula at home starting one week ago. Per pt, "I was here a week ago to have fluid removed from my lungs. I am having difficult breathing again and feeling like it's back again. They removed 1.5 liters of fluid from my lungs last time and I felt better. They found cancer cells in the fluid last time." Pt connected to all monitors and provided call light within reach. Pt requests lab work to be taken from accessing her port.
[2018-06-24 11:19] LABS: BASOPHILS # (AUTO) 0.02 x10^3/uL (0-0.1); BASOPHILS % (AUTO) 0 % (0-1); EOSINOPHILS # (AUTO) 0.01 x10^3/uL (0-0.4); EOSINOPHILS % (AUTO) 0 % (1-7); LYMPHOCYTES % (AUTO) 10 % (22-44); MD NO; MEAN CORPUSCULAR HEMOGLOBIN 28.6 pg (27.0-34.8); MEAN CORPUSCULAR HGB CONC 32.8 g/dL (32.4-35.8); MEAN CORPUSCULAR VOLUME 87.2 fL (80-100); MEAN PLATELET VOLUME 6.4 fL (7.4-10.4); MONOCYTES # (AUTO) 0.72 x10^3/uL (0.2-0.8); MONOCYTES % (AUTO) 15 % (2-9); NEUTROPHILS # (AUTO) 3.73 x10^3/uL (1.8-6.8); NEUTROPHILS % (AUTO) 75 % (42-75); PLATELET COUNT 287 x10^3/uL (130-400); RED BLOOD COUNT 3.07 x10^6/uL (3.82-5.3); RED CELL DISTRIBUTION WIDTH 18.8 % (9.6-15.2)
[2018-06-24 11:29] LABS: ALBUMIN 2.6 g/dL (3.4-5.0); ANION GAP 6 mmol/L (5-15); CALCIUM 8.9 mg/dL (8.5-10.1); CHLORIDE 101 mmol/L (98-107); CREATININE 0.85 mg/dL (0.55-1.02)
[2018-06-24] MEDS ORDERED: METHADONE 10 MG TABLET PO SCH (12:30)
[2018-06-24] MEDS ORDERED: ONDANSETRON ODT 4 MG PO PRN (12:30)
[2018-06-24] MEDS ORDERED: ONDANSETRON 2MG/ML, 2ML IVPush PRN (12:30)
[2018-06-24] MEDS ORDERED: ACETAMINOPHEN 325 MG TABLET PO PRN (12:30)
[2018-06-24] MEDS ORDERED: hydrALAzine 20 MG/ML, 1ML IVPush PRN (12:30)
[2018-06-24] MEDS: PREGABALIN 100 MG CAPSULE PO SCH ×3 (12:58→21:05)
--- NOTE | 2018-06-24 13:03 | NUR ---
Pt transported to [facility] on [facility].
[2018-06-24] MEDS ORDERED: HYDROcodone/APAP 10/325 MG TABLET ONE (13:05)
--- NOTE | 2018-06-24 13:39 | NUR ---
report to balaji posadas
[2018-06-24] MEDS: HYDROcodone/APAP 10/325 MG TABLET PO PRN ×2 (13:49→22:56)
--- NOTE | 2018-06-24 13:51 | NUR ---
Provided pt medication per EMAR for 10/10 LUE pain. Pt appreciative. NADN. All safety measures in place.
--- NOTE | 2018-06-24 14:44 | NUR ---
PT TRANSFERED TO FLOOR FROM ED WITH ALL PERSONAL BELONGINGS.
[2018-06-24] MEDS ORDERED: BUPIVACAINE/PF-EPI 0.5% 1:200K ONE (15:34)
[2018-06-24] MEDS ORDERED: FENTANYL PF 250 MCG/5ML ONE (15:36)
[2018-06-24] MEDS: METHADONE 10 MG TABLET PO SCH ×2 (16:00→21:05)
[2018-06-24] MEDS ORDERED: ROCURONIUM 10 MG/ML,10ML ONE (16:11)
[2018-06-24] MEDS ORDERED: PROPOFOL 10 MG/ML, 20ML ONE ×2 (16:11→17:03)
[2018-06-24] MEDS ORDERED: DEXAMETHASONE 4 MG/ML, 5ML ONE (16:11)
[2018-06-24] MEDS ORDERED: ONDANSETRON 2MG/ML, 2ML ONE ×2 (16:11→17:03)
[2018-06-24] MEDS ORDERED: SUCCINYLCHOLINE 20 MG/ML, 10ML ONE (16:11)
[2018-06-24] MEDS ORDERED: GLYCOPYRROLATE 0.2MG/1ML, 5ML ONE (16:11)
[2018-06-24] MEDS ORDERED: NEOSTIGMINE 1 MG/ML, 10ML ONE (16:11)
[2018-06-24] MEDS ORDERED: MIDAZOLAM 1 MG/ML, 2ML ONE (16:33)
[2018-06-24] MEDS ORDERED: PROMETHAZINE 12.5 MG SUPP PR PRN (17:30)
[2018-06-24] MEDS ORDERED: OXYcodone 5 MG/5 ML ORAL.SOL UDC PO PRN (17:30)
[2018-06-24] MEDS ORDERED: HALOPERIDOL 5 MG/ML IV PRN (17:30)
[2018-06-24] MEDS ORDERED: MIDAZOLAM 1 MG/ML, 2ML IV PRN (17:30)
[2018-06-24] MEDS ORDERED: hydrALAzine 20 MG/ML, 1ML IV PRN (17:30)
[2018-06-24] MEDS ORDERED: ONDANSETRON ODT 8 MG PO PRN (17:30)
[2018-06-24] MEDS ORDERED: MORPHINE SULFATE 4 MG/ML, 1ML IVPush PRN ×2 (17:30)
[2018-06-24] MEDS ORDERED: MEPERIDINE/PF 25MG/0.5ML IVPush PRN (17:30)
[2018-06-24] MEDS ORDERED: FENTANYL PF 100 MCG/2ML IV PRN (17:30)
[2018-06-24] MEDS ORDERED: EPHEDRINE 50 MG/ML, 1ML IVPush PRN (17:30)
[2018-06-24] MEDS ORDERED: ONDANSETRON 2MG/ML, 2ML IV PRN (17:30)
[2018-06-24] MEDS ORDERED: PROMETHAZINE 25 MG/ML, 1ML IV PRN (17:30)
[2018-06-24] MEDS ORDERED: LABETALOL 5MG/ML, 20ML IV PRN (17:30)
[2018-06-24] MEDS ORDERED: DIAZEPAM 5 MG/ML, 2ML IVPush PRN (17:30)
[2018-06-24] MEDS ORDERED: ALBUTEROL SULFATE 2.5 MG/3 ML NPPB PRN (17:30)
[2018-06-24] MEDS ORDERED: OXYcodone 5 MG/5 ML ORAL.SOL UDC ONE (17:39)
[2018-06-24] MEDS ORDERED: HYDROmorphone 2 MG/ML, 1ML ONE ×2 (17:39→18:15)
[2018-06-24] MEDS: HYDROmorphone 2 MG/ML, 1ML IVPush PRN ×6 (17:43→18:35)
[2018-06-24] MEDS ORDERED: FENTANYL PF 100 MCG/2ML ONE (18:14)
[2018-06-24 20:00] VITALS: BP 119/73
[2018-06-24] MEDS: IMIPRAMINE 25 MG TABLET PO SCH (22:56)
[2018-06-25] MEDS ORDERED: HYDROmorphone 2 MG/ML, 1ML IM PRN (00:30)
[2018-06-25] MEDS: HYDROmorphone 2 MG/ML, 1ML IV PRN ×6 (00:41→21:37)
[2018-06-25 02:00] VITALS: BP 108/63
[2018-06-25 05:40] LABS: BASOPHILS % (AUTO) 0 % (0-1); EOSINOPHILS % (AUTO) 0 % (1-7); LYMPHOCYTES # (AUTO) 0.37 x10^3/uL (1-3.4); LYMPHOCYTES % (AUTO) 7 % (22-44); MD NO; MEAN CORPUSCULAR HEMOGLOBIN 28.7 pg (27.0-34.8); MEAN CORPUSCULAR HGB CONC 32.6 g/dL (32.4-35.8); MEAN CORPUSCULAR VOLUME 88.2 fL (80-100); MEAN PLATELET VOLUME 6.7 fL (7.4-10.4); MONOCYTES # (AUTO) 0.42 x10^3/uL (0.2-0.8); MONOCYTES % (AUTO) 8 % (2-9); NEUTROPHILS # (AUTO) 4.42 x10^3/uL (1.8-6.8); NEUTROPHILS % (AUTO) 85 % (42-75); PLATELET COUNT 284 x10^3/uL (130-400); RED BLOOD COUNT 2.91 x10^6/uL (3.82-5.3); RED CELL DISTRIBUTION WIDTH 19.1 % (9.6-15.2)
[2018-06-25 05:46] LABS: ANION GAP 7 mmol/L (5-15); CHLORIDE 103 mmol/L (98-107); CREATININE 0.65 mg/dL (0.55-1.02)
[2018-06-25 07:00] VITALS: BP 101/61
[2018-06-25] MEDS ORDERED: RIVAROXABAN 20 MG TABLET PO SCH (08:00)
[2018-06-25] MEDS: Enoxaparin 1 mg/kg protocol SQ SCH ×2 (08:30→20:30)
[2018-06-25] MEDS: METHADONE 10 MG TABLET PO SCH ×3 (08:37→20:12)
[2018-06-25] MEDS: PREGABALIN 100 MG CAPSULE PO SCH ×3 (08:38→20:12)
[2018-06-25] MEDS: DULOXETINE 20 MG CAPSULE.DR PO SCH (08:38)
[2018-06-25] MEDS: ENOXAPARIN 100 MG/ML SQ SCH ×2 (08:40→20:11)
[2018-06-25] MEDS: POLYETHYLENE GLYCOL 17 GM PACKET PO SCH (08:40)
[2018-06-25] MEDS ORDERED: SERTRALINE 100MG TABLET PO SCH (09:00)
[2018-06-25] MEDS: HYDROcodone/APAP 10/325 MG TABLET PO PRN ×2 (11:00→20:12)
[2018-06-25 12:16] VITALS: BP 103/66
[2018-06-25 19:44] VITALS: BP 110/59
[2018-06-25] MEDS: IMIPRAMINE 25 MG TABLET PO SCH (20:11)
[2018-06-25] MEDS ORDERED: IMIPRAMINE 25 MG TABLET PO SCH (21:00)
[2018-06-26 01:04] VITALS: BP 105/58
[2018-06-26] MEDS: HYDROmorphone 2 MG/ML, 1ML IV PRN ×4 (01:35→17:09)
[2018-06-26 07:35] VITALS: BP 100/65
[2018-06-26] MEDS: Enoxaparin 1 mg/kg protocol SQ SCH ×2 (08:30→20:30)
[2018-06-26] MEDS: POLYETHYLENE GLYCOL 17 GM PACKET PO SCH (08:57)
[2018-06-26] MEDS: HYDROcodone/APAP 10/325 MG TABLET PO PRN ×2 (08:57→21:20)
[2018-06-26] MEDS: METHADONE 10 MG TABLET PO SCH ×3 (08:58→21:19)
[2018-06-26] MEDS: PREGABALIN 100 MG CAPSULE PO SCH ×3 (08:58→21:19)
[2018-06-26] MEDS: DULOXETINE 20 MG CAPSULE.DR PO SCH (08:58)
[2018-06-26] MEDS: ENOXAPARIN 100 MG/ML SQ SCH ×2 (09:01→21:18)
[2018-06-26 11:04] LABS: BASOPHILS # (AUTO) 0.05 x10^3/uL (0-0.1); BASOPHILS % (AUTO) 1 % (0-1); EOSINOPHILS % (AUTO) 0 % (1-7); LYMPHOCYTES # (AUTO) 0.54 x10^3/uL (1-3.4); LYMPHOCYTES % (AUTO) 9 % (22-44); MD NO; MEAN CORPUSCULAR HEMOGLOBIN 29.3 pg (27.0-34.8); MEAN CORPUSCULAR HGB CONC 33.7 g/dL (32.4-35.8); MEAN CORPUSCULAR VOLUME 87.1 fL (80-100); MEAN PLATELET VOLUME 6.5 fL (7.4-10.4); MONOCYTES % (AUTO) 11 % (2-9); NEUTROPHILS # (AUTO) 4.92 x10^3/uL (1.8-6.8); NEUTROPHILS % (AUTO) 79 % (42-75); PLATELET COUNT 311 x10^3/uL (130-400); RED CELL DISTRIBUTION WIDTH 19.5 % (9.6-15.2)
[2018-06-26 13:45] VITALS: BP 108/68
[2018-06-26 19:02] VITALS: BP 102/64
[2018-06-26] MEDS: IMIPRAMINE 25 MG TABLET PO SCH (21:19)
[2018-06-27 00:12] VITALS: BP 133/72
[2018-06-27] MEDS: HYDROmorphone 2 MG/ML, 1ML IV PRN ×4 (01:02→18:12)
[2018-06-27 05:39] LABS: BASOPHILS # (AUTO) 0.01 x10^3/uL (0-0.1); BASOPHILS % (AUTO) 0 % (0-1); EOSINOPHILS # (AUTO) 0.01 x10^3/uL (0-0.4); EOSINOPHILS % (AUTO) 0 % (1-7); LYMPHOCYTES # (AUTO) 0.64 x10^3/uL (1-3.4); LYMPHOCYTES % (AUTO) 12 % (22-44); MD NO; MEAN CORPUSCULAR HGB CONC 33.5 g/dL (32.4-35.8); MEAN CORPUSCULAR VOLUME 86.7 fL (80-100); MEAN PLATELET VOLUME 6.2 fL (7.4-10.4); MONOCYTES # (AUTO) 0.57 x10^3/uL (0.2-0.8); MONOCYTES % (AUTO) 11 % (2-9); NEUTROPHILS % (AUTO) 77 % (42-75); PLATELET COUNT 290 x10^3/uL (130-400); RED BLOOD COUNT 2.84 x10^6/uL (3.82-5.3)
[2018-06-27 07:20] VITALS: BP 103/66
[2018-06-27] MEDS: Enoxaparin 1 mg/kg protocol SQ SCH (08:30)
[2018-06-27] MEDS: DULOXETINE 20 MG CAPSULE.DR PO SCH (08:43)
[2018-06-27] MEDS: POLYETHYLENE GLYCOL 17 GM PACKET PO SCH (08:43)
[2018-06-27] MEDS: ENOXAPARIN 100 MG/ML SQ SCH (08:44)
[2018-06-27] MEDS: PREGABALIN 100 MG CAPSULE PO SCH ×3 (09:37→21:08)
[2018-06-27] MEDS: METHADONE 10 MG TABLET PO SCH ×3 (09:37→21:08)
[2018-06-27 13:15] VITALS: BP 114/71
[2018-06-27] MEDS: HYDROcodone/APAP 10/325 MG TABLET PO PRN ×2 (13:57→20:21)
[2018-06-27 18:37] VITALS: BP 109/70
[2018-06-27] MEDS: IMIPRAMINE 25 MG TABLET PO SCH (21:08)
[2018-06-28] MEDS: HYDROmorphone 2 MG/ML, 1ML IV PRN (01:31)
[2018-06-28 01:36] VITALS: BP 113/63
[2018-06-28] MEDS ORDERED: RIVAROXABAN 20 MG TABLET PO SCH ×2 (06:00→08:00)
[2018-06-28] MEDS: POLYETHYLENE GLYCOL 17 GM PACKET PO SCH (08:50)
[2018-06-28] MEDS: DULOXETINE 20 MG CAPSULE.DR PO SCH (08:52)
[2018-06-28] MEDS: PREGABALIN 100 MG CAPSULE PO SCH ×2 (09:02→15:36)
[2018-06-28] MEDS: METHADONE 10 MG TABLET PO SCH ×2 (09:03→15:36)
[2018-06-28] MEDS: HYDROcodone/APAP 10/325 MG TABLET PO PRN (09:03)
[2018-06-28 09:14] VITALS: BP 106/69
[2018-06-28 13:50] VITALS: BP 102/64
[2018-06-28] MEDS ORDERED: SENNA/DOCUSATE TABLET PO PRN (14:00)
== END 2018-06-28 16:24 | disposition home or self-care (01) | DRG 163 ==
LOC: ED 10:19 → EDIP 12:23 → 3NW 13:40
PROVIDERS: ADMIT Hospitalist; ATTEND Family Medicine
PROC: 0BCP4ZZ Extirpation of Matter from Left Pleura, Percutaneous Endoscopic Approach (ICD-10-PCS; 2018-06-24)
PROC: 0BNL4ZZ Release Left Lung, Percutaneous Endoscopic Approach (ICD-10-PCS; principal; 2018-06-24 15:45)
DX: J94.2 Hemothorax (principal); J96.91 Respiratory failure, unspecified with hypoxia; R65.10 Systemic inflammatory response syndrome (SIRS) of non-infectious origin without acute organ dysfunction; F11.20 Opioid dependence, uncomplicated; Z68.41 Body mass index [BMI] 40.0-44.9, adult; D62 Acute posthemorrhagic anemia; I82.622 Acute embolism and thrombosis of deep veins of left upper extremity; D68.69 Other thrombophilia; J91.0 Malignant pleural effusion; I89.0 Lymphedema, not elsewhere classified; E66.01 Morbid (severe) obesity due to excess calories; F41.8 Other specified anxiety disorders; T40.605A Adverse effect of unspecified narcotics, initial encounter; K59.03 Drug induced constipation; C50.919 Malignant neoplasm of unspecified site of unspecified female breast; D63.0 Anemia in neoplastic disease; T45.1X5A Adverse effect of antineoplastic and immunosuppressive drugs, initial encounter; G62.0 Drug-induced polyneuropathy; G89.3 Neoplasm related pain (acute) (chronic); Z90.13 Acquired absence of bilateral breasts and nipples; Z80.3 Family history of malignant neoplasm of breast; Z88.6 Allergy status to analgesic agent; Z88.8 Allergy status to other drugs, medicaments and biological substances; Z79.01 Long term (current) use of anticoagulants; Y92.89 Other specified places as the place of occurrence of the external cause; Z98.891 History of uterine scar from previous surgery; Z15.01 Genetic susceptibility to malignant neoplasm of breast; Z79.899 Other long term (current) drug therapy
CPT/HCPCS: 36415; 84145; 99285; J3490; 71045; 71250; 80048; 82040; 85025; 88305; 93005; 97161; C1729; G0378; J1100; J1170; J1650; J2250; J2405; J2704; J2710; J3010; J0330

== ENCOUNTER 2018-07-30 10:54 | Inpatient (IN) | payer OTHER ==
[~2018-07-30] VITALS: Ht 157.5 cm; Wt 95.0 kg
--- NOTE | 2018-07-30 12:05 | NUR ---
POWER PORT ACCESSED PER PT'S REQUEST FOR LAB DRAW AND ANY OTHER NEEDS THEY ARISE WHILE PT IS IN ER.
[2018-07-30 12:23] LABS: ALBUMIN 2.4 g/dL (3.4-5.0); ANION GAP 4 mmol/L (5-15); CALCIUM 8.3 mg/dL (8.5-10.1); CHLORIDE 107 mmol/L (98-107); CREATININE 0.84 mg/dL (0.55-1.02); MEAN CORPUSCULAR HEMOGLOBIN 26.3 pg (27.0-34.8); MEAN CORPUSCULAR HGB CONC 32.2 g/dL (32.4-35.8); MEAN CORPUSCULAR VOLUME 81.8 fL (80-100); MEAN PLATELET VOLUME 6.4 fL (7.4-10.4); PLATELET COUNT 315 x10^3/uL (130-400); RED CELL DISTRIBUTION WIDTH 21.2 % (9.6-15.2)
[2018-07-30 12:27] LABS: TROPONIN I < 0.015 ng/mL (0.000-0.045)
--- NOTE | 2018-07-30 12:40 | NUR ---
3 P'S ADDRESSED. PT RESTING IN [facility] IN NAD. VSS.
[2018-07-30 12:54] LABS: BASOPHILS # (AUTO) 0.02 x10^3/uL (0-0.1); BASOPHILS % (AUTO) 0 % (0-1); EOSINOPHILS # (AUTO) 0.04 x10^3/uL (0-0.4); EOSINOPHILS % (AUTO) 1 % (1-7); LYMPHOCYTES # (AUTO) 0.56 x10^3/uL (1-3.4); LYMPHOCYTES % (AUTO) 12 % (22-44); MD SCAN; MONOCYTES # (AUTO) 0.18 x10^3/uL (0.2-0.8); MONOCYTES % (AUTO) 4 % (2-9); NEUTROPHILS # (AUTO) 3.82 x10^3/uL (1.8-6.8); NEUTROPHILS % (AUTO) 83 % (42-75)
[2018-07-30] MEDS ORDERED: OMNIPAQUE 350 MG/ML, 100ML BOTTLE ONE (13:22)
--- NOTE | 2018-07-30 13:24 | NUR ---
PT BACK FROM CT. 3 P'S ADDRESSED. WAITING FOR RESULTS.
--- NOTE | 2018-07-30 13:56 | NUR ---
DR. PAIZ AT BEDSIDE. PT TO BE ADMITTED. VSS.
[2018-07-30] MEDS ORDERED: PIPERACILLIN/TAZO/PMX 3.375GM 50 ML IV ONE (14:00)
[2018-07-30] MEDS ORDERED: PIPERACILLIN/TAZO/PMX 3.375GM 50 ML ONE (14:44)
--- NOTE | 2018-07-30 14:51 | NUR ---
ANTIBIOTICS STARTED AFTER BLOOD CULTURES X 2 WERE DRAWN. SECOND CULTURE TAKEN FROM [facility] PER DR. DIAZ. ASEPTIC TECHNIQUE USED TO DRAW CULTURE. NO WASTE WAS DONE FOR CULTURE.
[2018-07-30] MEDS ORDERED: ONDANSETRON 2MG/ML, 2ML IVPush PRN (15:00)
[2018-07-30] MEDS ORDERED: DOCUSATE 100 MG CAPSULE PO PRN (15:00)
[2018-07-30] MEDS ORDERED: ONDANSETRON ODT 4 MG PO PRN (15:00)
[2018-07-30] MEDS ORDERED: LABETALOL 5MG/ML, 20ML IVPush PRN (15:00)
[2018-07-30] MEDS ORDERED: ENALAPRILAT 1.25 MG/ML, 2ML IVPush PRN (15:00)
[2018-07-30] MEDS ORDERED: BISACODYL 10 MG SUPP PR PRN (15:00)
[2018-07-30] MEDS: METHADONE 10 MG TABLET PO SCH ×2 (15:29→22:59)
[2018-07-30] MEDS: PREGABALIN 100 MG CAPSULE PO SCH ×2 (15:30→21:00)
[2018-07-30] MEDS: HYDROcodone/APAP 10/325 MG TABLET PO PRN ×2 (16:46→23:00)
[2018-07-30 17:54] VITALS: BP 122/56
[2018-07-30 19:43] VITALS: BP 105/62
[2018-07-30] MEDS: PIPERACILLIN/TAZO/PMX 3.375GM 50 ML IV SCH (20:08)
[2018-07-30] MEDS: LACTULOSE 10 GM/15 ML UDC PO SCH (21:00)
[2018-07-30] MEDS: DICLOFENAC SODIUM 75 MG TABLET.DR PO SCH (21:00)
[2018-07-31 00:47] VITALS: BP 107/61
[2018-07-31] MEDS: PIPERACILLIN/TAZO/PMX 3.375GM 50 ML IV SCH ×4 (01:46→19:56)
[2018-07-31] MEDS: HYDROcodone/APAP 10/325 MG TABLET PO PRN ×3 (04:42→17:13)
[2018-07-31 05:40] LABS: ANION GAP 5 mmol/L (5-15); CALCIUM 8.3 mg/dL (8.5-10.1); CHLORIDE 107 mmol/L (98-107); CREATININE 0.97 mg/dL (0.55-1.02)
[2018-07-31 06:00] LABS: BASOPHILS # (AUTO) 0.01 x10^3/uL (0-0.1); BASOPHILS % (AUTO) 0 % (0-1); EOSINOPHILS # (AUTO) 0.09 x10^3/uL (0-0.4); EOSINOPHILS % (AUTO) 3 % (1-7); LYMPHOCYTES # (AUTO) 0.71 x10^3/uL (1-3.4); LYMPHOCYTES % (AUTO) 19 % (22-44); MD NO; MEAN CORPUSCULAR HEMOGLOBIN 26.1 pg (27.0-34.8); MEAN CORPUSCULAR VOLUME 81.6 fL (80-100); MONOCYTES # (AUTO) 0.15 x10^3/uL (0.2-0.8); MONOCYTES % (AUTO) 4 % (2-9); NEUTROPHILS # (AUTO) 2.83 x10^3/uL (1.8-6.8); NEUTROPHILS % (AUTO) 75 % (42-75); PLATELET COUNT 297 x10^3/uL (130-400); RED BLOOD COUNT 2.88 x10^6/uL (3.82-5.3); RED CELL DISTRIBUTION WIDTH 21.8 % (9.6-15.2)
[2018-07-31 07:42] VITALS: BP 111/71
[2018-07-31] MEDS: SENNA/DOCUSATE TABLET PO SCH (08:54)
[2018-07-31] MEDS: DICLOFENAC SODIUM 75 MG TABLET.DR PO SCH ×2 (08:54→19:56)
[2018-07-31] MEDS: METHADONE 10 MG TABLET PO SCH ×3 (08:54→19:56)
[2018-07-31] MEDS: LACTULOSE 10 GM/15 ML UDC PO SCH ×2 (08:54→19:56)
[2018-07-31] MEDS: RIVAROXABAN 20 MG TABLET PO SCH (08:54)
[2018-07-31] MEDS: PREGABALIN 100 MG CAPSULE PO SCH ×3 (08:54→19:56)
[2018-07-31] MEDS: SERTRALINE 100MG TABLET PO SCH (08:55)
[2018-07-31 12:37] VITALS: BP 109/73
[2018-07-31 19:10] VITALS: BP 102/59
[2018-08-01 01:26] VITALS: BP 103/65
[2018-08-01] MEDS: PIPERACILLIN/TAZO/PMX 3.375GM 50 ML IV SCH ×2 (01:26→07:45)
[2018-08-01 05:26] LABS: BASOPHILS # (AUTO) 0.02 x10^3/uL (0-0.1); BASOPHILS % (AUTO) 1 % (0-1); EOSINOPHILS # (AUTO) 0.15 x10^3/uL (0-0.4); EOSINOPHILS % (AUTO) 4 % (1-7); LYMPHOCYTES % (AUTO) 10 % (22-44); MD NO; MEAN CORPUSCULAR HEMOGLOBIN 25.5 pg (27.0-34.8); MEAN CORPUSCULAR HGB CONC 31.2 g/dL (32.4-35.8); MEAN CORPUSCULAR VOLUME 81.7 fL (80-100); MEAN PLATELET VOLUME 6.8 fL (7.4-10.4); MONOCYTES % (AUTO) 3 % (2-9); NEUTROPHILS # (AUTO) 3.36 x10^3/uL (1.8-6.8); NEUTROPHILS % (AUTO) 83 % (42-75); PLATELET COUNT 256 x10^3/uL (130-400); RED BLOOD COUNT 2.91 x10^6/uL (3.82-5.3); RED CELL DISTRIBUTION WIDTH 21.9 % (9.6-15.2)
[2018-08-01] MEDS: HYDROcodone/APAP 10/325 MG TABLET PO PRN (07:55)
[2018-08-01 08:00] VITALS: BP 116/68
[2018-08-01] MEDS: METHADONE 10 MG TABLET PO SCH (09:00)
[2018-08-01] MEDS ORDERED: METHADONE 5 MG TABLET ONE (09:14)
[2018-08-01] MEDS: PREGABALIN 100 MG CAPSULE PO SCH (09:18)
[2018-08-01] MEDS: SENNA/DOCUSATE TABLET PO SCH (09:18)
[2018-08-01] MEDS: RIVAROXABAN 20 MG TABLET PO SCH (09:18)
[2018-08-01] MEDS: LACTULOSE 10 GM/15 ML UDC PO SCH (09:18)
[2018-08-01] MEDS: DICLOFENAC SODIUM 75 MG TABLET.DR PO SCH (09:18)
[2018-08-01] MEDS: SERTRALINE 100MG TABLET PO SCH (09:18)
[2018-08-01] MEDS ORDERED: DOXY100T PO (11:51)
[2018-08-01] MEDS ORDERED: CEFD300C37 PO (11:51)
== END 2018-08-01 13:56 | disposition home or self-care (01) | DRG 189 ==
LOC: ED 13:14 → EDIP 14:01 → 3NW 15:04
PROVIDERS: ADMIT Internal Medicine; ATTEND Internal Medicine
DX: J96.21 Acute and chronic respiratory failure with hypoxia (principal); J18.9 Pneumonia, unspecified organism; I82.622 Acute embolism and thrombosis of deep veins of left upper extremity; J91.0 Malignant pleural effusion; D68.69 Other thrombophilia; F11.20 Opioid dependence, uncomplicated; K59.03 Drug induced constipation; T45.1X5A Adverse effect of antineoplastic and immunosuppressive drugs, initial encounter; K59.09 Other constipation; G62.0 Drug-induced polyneuropathy; C50.919 Malignant neoplasm of unspecified site of unspecified female breast; T40.2X5A Adverse effect of other opioids, initial encounter; G89.3 Neoplasm related pain (acute) (chronic); D64.9 Anemia, unspecified; F32.9 Major depressive disorder, single episode, unspecified; F41.9 Anxiety disorder, unspecified; Y95 Nosocomial condition; Z99.81 Dependence on supplemental oxygen; Z86.718 Personal history of other venous thrombosis and embolism; Z80.3 Family history of malignant neoplasm of breast; Z85.3 Personal history of malignant neoplasm of breast; Z79.01 Long term (current) use of anticoagulants; Z88.8 Allergy status to other drugs, medicaments and biological substances
CPT/HCPCS: 36415; 71046; 71275; 80048; 82040; 84145; 84484; 85014; 85018; 85025; 86850; 86900; 87040; 93005; 99285; G0378; J2405; J2543; Q0162; Q9967

== ENCOUNTER → 2018-08-04 | Outpatient (CLI) | payer OTHER ==
[~2018-08-04] MED LIST changes: +IMIP50TA3 PO; +LIDOCAINE-MPF 1%, 5ML ONE
== END | disposition home or self-care (01) ==
LOC: RAD 14:02
PROVIDERS: ATTEND Specialist
DX: C38.4 Malignant neoplasm of pleura (principal); C79.81 Secondary malignant neoplasm of breast; J90 Pleural effusion, not elsewhere classified; Z85.3 Personal history of malignant neoplasm of breast
CPT/HCPCS: 32555; 88112

== ENCOUNTER 2018-08-09 15:37 | Inpatient (IN) | payer OTHER ==
[~2018-08-09] VITALS: Ht 157.5 cm; Wt 97.0 kg
[~2018-08-09 15:37] MED LIST changes: -IMIP50TA3 PO; -LIDOCAINE-MPF 1%, 5ML ONE
--- NOTE | 2018-08-09 16:54 | NUR ---
PORT ACCESSED, LABS DRAWN AND SENT
[2018-08-09 17:06] LABS: BASOPHILS % (AUTO) 0 % (0-1); EOSINOPHILS # (AUTO) 0.09 x10^3/uL (0-0.4); EOSINOPHILS % (AUTO) 3 % (1-7); LYMPHOCYTES # (AUTO) 0.36 x10^3/uL (1-3.4); LYMPHOCYTES % (AUTO) 11 % (22-44); MD NO; MEAN CORPUSCULAR HEMOGLOBIN 27.6 pg (27.0-34.8); MEAN CORPUSCULAR HGB CONC 32.5 g/dL (32.4-35.8); MEAN PLATELET VOLUME 6.8 fL (7.4-10.4); MONOCYTES # (AUTO) 0.08 x10^3/uL (0.2-0.8); MONOCYTES % (AUTO) 2 % (2-9); NEUTROPHILS % (AUTO) 84 % (42-75); PLATELET COUNT 262 x10^3/uL (130-400); RED BLOOD COUNT 3.59 x10^6/uL (3.82-5.3); RED CELL DISTRIBUTION WIDTH 21.9 % (9.6-15.2)
[2018-08-09 17:14] LABS: ALBUMIN 2.5 g/dL (3.4-5.0); ANION GAP 4 mmol/L (5-15); CALCIUM 8.3 mg/dL (8.5-10.1); CHLORIDE 106 mmol/L (98-107); CREATININE 0.49 mg/dL (0.55-1.02)
[2018-08-09] MEDS ORDERED: CEFEPIME 1 GM in DEXTROSE 5% 50 ML IV ONE (17:30)
[2018-08-09] MEDS ORDERED: VANCOMYCIN PER PHARMACY MC PRN ×2 (17:30→18:30)
[2018-08-09] MEDS ORDERED: PHARMACOKINETIC CONSULTATION MC ONE ×2 (17:30→21:30)
[2018-08-09] MEDS ORDERED: VANCOMYCIN 2,000 MG in SODIUM CHLORIDE 0.9% 500 ML IV ONE (18:00)
[2018-08-09] MEDS ORDERED: IMIP50TA3 PO (18:05)
--- NOTE | 2018-08-09 18:06 | NUR ---
MARICEL, PA AT BEDSIDE TO UPDATE PT ON POC
[2018-08-09] MEDS ORDERED: CEFEPIME 2 GM in DEXTROSE 5% 100 ML IV SCH (18:30)
[2018-08-09] MEDS ORDERED: ONDANSETRON 2MG/ML, 2ML IVPush PRN (18:30)
[2018-08-09] MEDS ORDERED: hydrALAzine 20 MG/ML, 1ML IVPush PRN (18:30)
[2018-08-09] MEDS ORDERED: ACETAMINOPHEN 325 MG TABLET PO PRN (18:30)
[2018-08-09] MEDS ORDERED: IMIPRAMINE 50 MG TABLET PO SCH (21:00)
[2018-08-09] MEDS ORDERED: RIVAROXABAN 20 MG TABLET PO SCH (21:27)
[2018-08-09] MEDS ORDERED: PHARMACOKINETIC MONITORING MC PRN (21:30)
[2018-08-09] MEDS: PREGABALIN 100 MG CAPSULE PO SCH (21:46)
[2018-08-09] MEDS: METHADONE 10 MG TABLET PO SCH (21:46)
[2018-08-09] MEDS: DICLOFENAC SODIUM 75 MG TABLET.DR PO SCH (21:46)
[2018-08-09 21:49] VITALS: BP 117/73
[2018-08-09] MEDS: IMIPRAMINE 25 MG TABLET PO SCH (22:00)
[2018-08-10] MEDS: HYDROcodone/APAP 10/325 MG TABLET PO PRN ×3 (00:51→20:57)
[2018-08-10] MEDS ORDERED: CEFEPIME 2 GM in DEXTROSE 5% 100 ML IV SCH (01:30)
[2018-08-10 01:48] VITALS: BP 107/65
[2018-08-10 05:52] LABS: BASOPHILS # (AUTO) 0.02 x10^3/uL (0-0.1); BASOPHILS % (AUTO) 1 % (0-1); EOSINOPHILS # (AUTO) 0.13 x10^3/uL (0-0.4); EOSINOPHILS % (AUTO) 4 % (1-7); LYMPHOCYTES # (AUTO) 0.58 x10^3/uL (1-3.4); LYMPHOCYTES % (AUTO) 18 % (22-44); MD NO; MEAN CORPUSCULAR HEMOGLOBIN 27.5 pg (27.0-34.8); MEAN CORPUSCULAR HGB CONC 32.5 g/dL (32.4-35.8); MEAN CORPUSCULAR VOLUME 84.6 fL (80-100); MEAN PLATELET VOLUME 6.9 fL (7.4-10.4); MONOCYTES # (AUTO) 0.16 x10^3/uL (0.2-0.8); MONOCYTES % (AUTO) 5 % (2-9); NEUTROPHILS # (AUTO) 2.27 x10^3/uL (1.8-6.8); NEUTROPHILS % (AUTO) 72 % (42-75); PLATELET COUNT 248 x10^3/uL (130-400); RED BLOOD COUNT 3.33 x10^6/uL (3.82-5.3)
[2018-08-10 06:00] LABS: ALANINE AMINOTRANSFERASE 12 U/L (12-78); ALBUMIN 2.4 g/dL (3.4-5.0); ANION GAP 4 mmol/L (5-15); CALCIUM 8.2 mg/dL (8.5-10.1); CHLORIDE 108 mmol/L (98-107); CREATININE 0.62 mg/dL (0.55-1.02)
[2018-08-10] MEDS ORDERED: VANCOMYCIN 2,000 MG in SODIUM CHLORIDE 0.9% 500 ML IV SCH (06:00)
[2018-08-10 06:03] LABS: ALKALINE PHOSPHATASE 127 U/L (45-117); BILIRUBIN,TOTAL 0.8 mg/dL (0.2-1.0); TOTAL PROTEIN 5.6 g/dL (6.4-8.2)
[2018-08-10 07:33] VITALS: BP 127/66
[2018-08-10] MEDS: SERTRALINE 100MG TABLET PO SCH (09:31)
[2018-08-10] MEDS: PREGABALIN 100 MG CAPSULE PO SCH ×3 (09:31→20:57)
[2018-08-10] MEDS: DICLOFENAC SODIUM 75 MG TABLET.DR PO SCH ×2 (09:32→20:56)
[2018-08-10] MEDS: METHADONE 10 MG TABLET PO SCH ×3 (09:32→22:23)
[2018-08-10 09:56] LABS: HCT (SEDRATE) 28.2 % (34.6-47.8)
[2018-08-10] MEDS ORDERED: OMNIPAQUE 350 MG/ML, 100ML BOTTLE ONE (12:23)
[2018-08-10] MEDS: HEPARIN 5,000 UNITS/ML, 1ML SQ SCH ×2 (12:47→21:01)
[2018-08-10] MEDS ORDERED: LIDOCAINE-MPF 1%, 5ML ONE (15:05)
[2018-08-10] MEDS ORDERED: CEFTRIAXONE PMX 2GM/50ML 50 ML IV SCH (18:00)
[2018-08-10 20:03] VITALS: BP 113/73
[2018-08-10] MEDS: IMIPRAMINE 25 MG TABLET PO SCH (20:56)
[2018-08-10] MEDS ORDERED: IMIPRAMINE 25 MG TABLET PO SCH (21:00)
[2018-08-11 03:07] VITALS: BP 107/63
[2018-08-11] MEDS: HYDROcodone/APAP 10/325 MG TABLET PO PRN ×3 (05:24→20:12)
[2018-08-11] MEDS: HEPARIN 5,000 UNITS/ML, 1ML SQ SCH ×3 (05:27→20:12)
[2018-08-11 06:14] LABS: ALBUMIN 2.3 g/dL (3.4-5.0); ANION GAP 4 mmol/L (5-15); CALCIUM 8.3 mg/dL (8.5-10.1); CHLORIDE 107 mmol/L (98-107); MEAN CORPUSCULAR HEMOGLOBIN 27.9 pg (27.0-34.8); MEAN CORPUSCULAR HGB CONC 32.9 g/dL (32.4-35.8); MEAN CORPUSCULAR VOLUME 84.9 fL (80-100); PLATELET COUNT 242 x10^3/uL (130-400); RED BLOOD COUNT 3.28 x10^6/uL (3.82-5.3); RED CELL DISTRIBUTION WIDTH 23.2 % (9.6-15.2)
[2018-08-11 06:17] LABS: ALANINE AMINOTRANSFERASE 12 U/L (12-78); ALKALINE PHOSPHATASE 135 U/L (45-117); BILIRUBIN,TOTAL 0.2 mg/dL (0.2-1.0); CREATININE 0.59 mg/dL (0.55-1.02); TOTAL PROTEIN 5.6 g/dL (6.4-8.2)
[2018-08-11 06:40] LABS: MD YES
[2018-08-11 06:44] LABS: BAND#(MANUAL) 0.06 x10^3/uL; BANDS%(MANUAL) 2 % (0-7); BASOS#(MANUAL) 0.06 x10^3/uL (0-0.1); BASOS% (MANUAL) 2 % (0-1); EOS#(MANUAL) 0.06 x10^3/uL (0.0-0.4); EOS% (MANUAL) 2 % (1-7); LYMPH#(MANUAL) 0.58 x10^3/uL (1-3.4); LYMPHS% (MANUAL) 20 % (22-44); MONOS#(MANUAL) 0.17 x10^3/uL (0.3-2.7); MONOS% (MANUAL) 6 % (2-9); SEG#(MANUAL) 1.97 x10^3/uL (1.8-6.8); SEGS% (MANUAL) 68 % (42-75)
[2018-08-11 06:45] LABS: OVALOCYTES 1+; POLYCHROMASIA 1+
[2018-08-11 06:46] LABS: <PLATELET ESTIMATE> ADEQUATE; <PLT MORPHOLOGY> NORMAL PLT MORPH; ANISOCYTOSIS 2+; MICROCYTOSIS 1+
[2018-08-11 07:20] VITALS: BP 115/70
[2018-08-11] MEDS: SERTRALINE 100MG TABLET PO SCH (09:29)
[2018-08-11] MEDS: METHADONE 10 MG TABLET PO SCH ×3 (09:29→22:51)
[2018-08-11] MEDS: PREGABALIN 100 MG CAPSULE PO SCH ×3 (09:29→22:51)
[2018-08-11] MEDS: DICLOFENAC SODIUM 75 MG TABLET.DR PO SCH ×2 (09:29→22:51)
[2018-08-11 12:30] VITALS: BP 108/61
[2018-08-11] MEDS ORDERED: POLYETHYLENE GLYCOL 17 GM PACKET ONE (17:01)
[2018-08-11 19:34] VITALS: BP 113/66
[2018-08-11] MEDS: IMIPRAMINE 25 MG TABLET PO SCH (22:51)
[2018-08-12 00:52] VITALS: BP 120/69
[2018-08-12] MEDS: HEPARIN 5,000 UNITS/ML, 1ML SQ SCH ×3 (04:30→20:00)
[2018-08-12 06:46] LABS: ANION GAP 5 mmol/L (5-15); CALCIUM 8.5 mg/dL (8.5-10.1); CHLORIDE 106 mmol/L (98-107); MEAN CORPUSCULAR HEMOGLOBIN 27.5 pg (27.0-34.8); MEAN CORPUSCULAR HGB CONC 32.4 g/dL (32.4-35.8); MEAN CORPUSCULAR VOLUME 84.7 fL (80-100); MEAN PLATELET VOLUME 6.8 fL (7.4-10.4); PLATELET COUNT 250 x10^3/uL (130-400); RED BLOOD COUNT 3.31 x10^6/uL (3.82-5.3); RED CELL DISTRIBUTION WIDTH 22.5 % (9.6-15.2)
[2018-08-12] MEDS ORDERED: BUPIVACAINE/PF-EPI 0.5% 1:200K ONE (07:08)
[2018-08-12 07:11] LABS: BASOPHILS # (AUTO) 0.03 x10^3/uL (0-0.1); BASOPHILS % (AUTO) 1 % (0-1); EOSINOPHILS # (AUTO) 0.07 x10^3/uL (0-0.4); EOSINOPHILS % (AUTO) 3 % (1-7); LYMPHOCYTES # (AUTO) 0.64 x10^3/uL (1-3.4); LYMPHOCYTES % (AUTO) 25 % (22-44); MD SCAN; MONOCYTES # (AUTO) 0.21 x10^3/uL (0.2-0.8); MONOCYTES % (AUTO) 8 % (2-9); NEUTROPHILS % (AUTO) 63 % (42-75)
[2018-08-12 08:00] VITALS: BP 109/67
[2018-08-12] MEDS: POLYETHYLENE GLYCOL 17 GM PACKET NG SCH (09:00)
[2018-08-12] MEDS: DICLOFENAC SODIUM 75 MG TABLET.DR PO SCH ×2 (10:10→21:23)
[2018-08-12] MEDS: METHADONE 10 MG TABLET PO SCH ×3 (10:10→21:03)
[2018-08-12] MEDS: PREGABALIN 100 MG CAPSULE PO SCH ×3 (10:10→21:03)
[2018-08-12] MEDS: SERTRALINE 100MG TABLET PO SCH (10:11)
[2018-08-12] MEDS ORDERED: ACETAMINOPHEN 325 MG TABLET PO PRN (12:00)
[2018-08-12] MEDS ORDERED: PROMETHAZINE 25 MG/ML, 1ML IV PRN (12:00)
[2018-08-12] MEDS ORDERED: ONDANSETRON ODT 8 MG PO PRN (12:00)
[2018-08-12] MEDS ORDERED: ONDANSETRON 2MG/ML, 2ML IV PRN ×2 (12:00→17:30)
[2018-08-12] MEDS ORDERED: LORazepam 2 MG/ML, 1ML IVPush PRN (12:00)
[2018-08-12] MEDS ORDERED: FENTANYL PF 100 MCG/2ML IV PRN (12:00)
[2018-08-12] MEDS ORDERED: OXYcodone 5 MG/5 ML ORAL.SOL UDC PO PRN (12:00)
[2018-08-12] MEDS ORDERED: SODIUM CHLORIDE 0.9% 0 ML ONE (12:01)
[2018-08-12] MEDS ORDERED: DOXYCYCLINE 100 MG ONE (12:01)
[2018-08-12] MEDS ORDERED: FENTANYL PF 250 MCG/5ML ONE (12:01)
[2018-08-12] MEDS ORDERED: MIDAZOLAM 1 MG/ML, 2ML ONE (12:05)
[2018-08-12] MEDS ORDERED: TALC 4 GM VIAL INTRAPL ONE (12:20)
[2018-08-12] MEDS ORDERED: SUGAMMADEX 200 MG/2 ML IVPush ONE (12:42)
[2018-08-12] MEDS ORDERED: KETOROLAC 30 MG/1 ML ONE (13:53)
[2018-08-12] MEDS ORDERED: HYDROmorphone PCA 30 MG/30 ML IV PRN (14:00)
[2018-08-12] MEDS ORDERED: HYDROmorphone 1 MG/ML, 1ML ONE (14:01)
[2018-08-12] MEDS: HYDROmorphone 2 MG/ML, 1ML IVPush PRN ×4 (14:03→14:36)
[2018-08-12] MEDS ORDERED: ROCURONIUM 10MG/ML,5ML ONE (14:23)
[2018-08-12] MEDS ORDERED: SUCCINYLCHOLINE 20 MG/ML, 10ML ONE (14:23)
[2018-08-12] MEDS ORDERED: GLYCOPYRROLATE 0.2MG/1ML, 5ML ONE (14:23)
[2018-08-12] MEDS ORDERED: PROPOFOL 10 MG/ML, 20ML ONE (14:23)
[2018-08-12] MEDS ORDERED: CEFAZOLIN 1,000 MG ONE (14:23)
[2018-08-12] MEDS ORDERED: ONDANSETRON 2MG/ML, 2ML ONE (14:23)
[2018-08-12] MEDS ORDERED: NEOSTIGMINE 1 MG/ML, 10ML ONE (14:23)
[2018-08-12] MEDS ORDERED: KETOROLAC 30 MG/1 ML IM ONE (14:30)
[2018-08-12] MEDS ORDERED: OXYcodone 5 MG/5 ML ORAL.SOL UDC ONE ×2 (15:02)
[2018-08-12] MEDS: ACETAMINOPHEN 500 MG TABLET PO SCH ×2 (17:30→23:17)
[2018-08-12] MEDS: KETOROLAC 30 MG/1 ML IV SCH ×2 (18:29→23:17)
[2018-08-12] MEDS: POTASSIUM CHLORIDE 20 MEQ in D5%-0.45% NACL 1,000 ML IV SCH (18:30)
[2018-08-12] MEDS: HYDROcodone/APAP 10/325 MG TABLET PO PRN (18:37)
[2018-08-12] MEDS: IMIPRAMINE 25 MG TABLET PO SCH (21:03)
[2018-08-12] MEDS: CEFAZOLIN PMX 2GM/50ML 50 ML IVPB SCH (21:03)
[2018-08-13] MEDS: KETOROLAC 30 MG/1 ML IV SCH ×4 (05:23→23:29)
[2018-08-13] MEDS: CEFAZOLIN PMX 2GM/50ML 50 ML IVPB SCH (05:23)
[2018-08-13] MEDS: HEPARIN 5,000 UNITS/ML, 1ML SQ SCH ×3 (05:23→20:48)
[2018-08-13] MEDS: ACETAMINOPHEN 500 MG TABLET PO SCH ×4 (05:24→23:31)
[2018-08-13] MEDS: POTASSIUM CHLORIDE 20 MEQ in D5%-0.45% NACL 1,000 ML IV SCH ×2 (05:38→07:58)
[2018-08-13 06:09] LABS: MEAN CORPUSCULAR HEMOGLOBIN 28.1 pg (27.0-34.8); MEAN CORPUSCULAR HGB CONC 33.4 g/dL (32.4-35.8); MEAN CORPUSCULAR VOLUME 84.1 fL (80-100); PLATELET COUNT 254 x10^3/uL (130-400); RED BLOOD COUNT 3.33 x10^6/uL (3.82-5.3); RED CELL DISTRIBUTION WIDTH 22.8 % (9.6-15.2)
[2018-08-13 06:30] LABS: BASOPHILS # (AUTO) 0.01 x10^3/uL (0-0.1); BASOPHILS % (AUTO) 0 % (0-1); EOSINOPHILS # (AUTO) 0.04 x10^3/uL (0-0.4); EOSINOPHILS % (AUTO) 1 % (1-7); LYMPHOCYTES # (AUTO) 0.41 x10^3/uL (1-3.4); LYMPHOCYTES % (AUTO) 9 % (22-44); MD SCAN; MONOCYTES # (AUTO) 0.36 x10^3/uL (0.2-0.8); MONOCYTES % (AUTO) 8 % (2-9); NEUTROPHILS # (AUTO) 3.61 x10^3/uL (1.8-6.8); NEUTROPHILS % (AUTO) 82 % (42-75)
[2018-08-13] MEDS: POLYETHYLENE GLYCOL 17 GM PACKET NG SCH (09:15)
[2018-08-13] MEDS: FUROSEMIDE 40 MG/4 ML IV SCH ×2 (09:15→20:48)
[2018-08-13] MEDS: SERTRALINE 100MG TABLET PO SCH (09:16)
[2018-08-13] MEDS: PREGABALIN 100 MG CAPSULE PO SCH ×3 (09:16→20:50)
[2018-08-13] MEDS: METHADONE 10 MG TABLET PO SCH ×3 (09:16→20:49)
[2018-08-13 09:41] LABS: ALANINE AMINOTRANSFERASE 10 U/L (12-78); ALBUMIN 2.3 g/dL (3.4-5.0); ANION GAP 4 mmol/L (5-15); CALCIUM 8.4 mg/dL (8.5-10.1); CHLORIDE 106 mmol/L (98-107); CREATININE 0.52 mg/dL (0.55-1.02)
[2018-08-13 09:44] LABS: ALKALINE PHOSPHATASE 131 U/L (45-117); BILIRUBIN,TOTAL 0.3 mg/dL (0.2-1.0); TOTAL PROTEIN 5.5 g/dL (6.4-8.2)
[2018-08-13] MEDS: GUAIFENESIN 200 MG TABLET PO SCH ×3 (12:28→20:49)
[2018-08-13] MEDS: IMIPRAMINE 25 MG TABLET PO SCH (20:49)
[2018-08-14 03:58] LABS: MEAN CORPUSCULAR HEMOGLOBIN 27.9 pg (27.0-34.8); MEAN CORPUSCULAR VOLUME 84.6 fL (80-100); MEAN PLATELET VOLUME 6.8 fL (7.4-10.4); PLATELET COUNT 224 x10^3/uL (130-400); RED BLOOD COUNT 3.41 x10^6/uL (3.82-5.3); RED CELL DISTRIBUTION WIDTH 22.4 % (9.6-15.2)
[2018-08-14 04:10] LABS: ALANINE AMINOTRANSFERASE 7 U/L (12-78); ALBUMIN 2.1 g/dL (3.4-5.0); ANION GAP 7 mmol/L (5-15); ANISOCYTOSIS 1+; BASOPHILS # (AUTO) 0.02 x10^3/uL (0-0.1); BASOPHILS % (AUTO) 0 % (0-1); CALCIUM 7.6 mg/dL (8.5-10.1); CHLORIDE 110 mmol/L (98-107); CREATININE 0.61 mg/dL (0.55-1.02); EOSINOPHILS # (AUTO) 0.12 x10^3/uL (0-0.4); EOSINOPHILS % (AUTO) 3 % (1-7); LYMPHOCYTES # (AUTO) 0.38 x10^3/uL (1-3.4); LYMPHOCYTES % (AUTO) 8 % (22-44); MD MORPH REVIEW ONLY; MICROCYTOSIS 1+; MONOCYTES # (AUTO) 0.45 x10^3/uL (0.2-0.8); MONOCYTES % (AUTO) 9 % (2-9); NEUTROPHILS # (AUTO) 4.01 x10^3/uL (1.8-6.8); NEUTROPHILS % (AUTO) 81 % (42-75); OVALOCYTES 1+; POLYCHROMASIA 1+
[2018-08-14 04:11] LABS: <PLATELET ESTIMATE> ADEQUATE; <PLT MORPHOLOGY> NORMAL PLT MORPH; TEAR DROPS 1+
[2018-08-14 04:13] LABS: ALKALINE PHOSPHATASE 120 U/L (45-117); BILIRUBIN,TOTAL 0.3 mg/dL (0.2-1.0); TOTAL PROTEIN 5.1 g/dL (6.4-8.2)
[2018-08-14] MEDS: GUAIFENESIN 200 MG TABLET PO SCH ×4 (05:08→20:43)
[2018-08-14] MEDS: HEPARIN 5,000 UNITS/ML, 1ML SQ SCH ×3 (05:08→20:42)
[2018-08-14] MEDS: ACETAMINOPHEN 500 MG TABLET PO SCH ×4 (05:08→23:36)
[2018-08-14] MEDS: KETOROLAC 30 MG/1 ML IV SCH ×4 (05:08→23:36)
[2018-08-14] MEDS: SERTRALINE 100MG TABLET PO SCH (07:57)
[2018-08-14] MEDS: PREGABALIN 100 MG CAPSULE PO SCH ×3 (07:57→20:42)
[2018-08-14] MEDS: METHADONE 10 MG TABLET PO SCH ×2 (07:57→17:48)
[2018-08-14] MEDS: FUROSEMIDE 40 MG/4 ML IV SCH ×2 (07:58→20:42)
[2018-08-14] MEDS: POLYETHYLENE GLYCOL 17 GM PACKET NG SCH (07:58)
[2018-08-14] MEDS: POTASSIUM CHLORIDE 20 MEQ TAB.ER.PRT PO SCH ×2 (09:50→20:43)
[2018-08-14] MEDS ORDERED: HYDROmorphone 2 MG/ML, 1ML IVPush PRN (11:00)
[2018-08-14 13:41] VITALS: BP 128/75
[2018-08-14 19:06] VITALS: BP 118/69
[2018-08-14] MEDS ORDERED: SODIUM CHLORIDE NASAL SPRAY 45ML BOTTLE NAS PRN (20:30)
[2018-08-14] MEDS: IMIPRAMINE 25 MG TABLET PO SCH (20:43)
[2018-08-15 01:40] VITALS: BP 125/71
[2018-08-15] MEDS: METHADONE 10 MG TABLET PO SCH ×4 (02:44→23:31)
[2018-08-15 05:23] LABS: ANION GAP 5 mmol/L (5-15); CALCIUM 8.7 mg/dL (8.5-10.1); CHLORIDE 105 mmol/L (98-107); CREATININE 0.66 mg/dL (0.55-1.02)
[2018-08-15 05:30] LABS: MEAN CORPUSCULAR HEMOGLOBIN 28.1 pg (27.0-34.8); MEAN CORPUSCULAR HGB CONC 33.1 g/dL (32.4-35.8); MEAN CORPUSCULAR VOLUME 85.1 fL (80-100); PLATELET COUNT 271 x10^3/uL (130-400); RED BLOOD COUNT 3.21 x10^6/uL (3.82-5.3); RED CELL DISTRIBUTION WIDTH 22.3 % (9.6-15.2)
[2018-08-15] MEDS: KETOROLAC 30 MG/1 ML IV SCH ×4 (05:33→23:32)
[2018-08-15] MEDS: GUAIFENESIN 200 MG TABLET PO SCH ×4 (05:33→20:53)
[2018-08-15] MEDS: ACETAMINOPHEN 500 MG TABLET PO SCH ×4 (05:33→23:32)
[2018-08-15] MEDS: HEPARIN 5,000 UNITS/ML, 1ML SQ SCH ×3 (05:33→23:32)
[2018-08-15 06:00] LABS: BASOPHILS # (AUTO) 0.01 x10^3/uL (0-0.1); BASOPHILS % (AUTO) 0 % (0-1); EOSINOPHILS # (AUTO) 0.18 x10^3/uL (0-0.4); EOSINOPHILS % (AUTO) 3 % (1-7); LYMPHOCYTES # (AUTO) 0.49 x10^3/uL (1-3.4); LYMPHOCYTES % (AUTO) 9 % (22-44); MD SCAN; MONOCYTES % (AUTO) 10 % (2-9); NEUTROPHILS # (AUTO) 4.13 x10^3/uL (1.8-6.8); NEUTROPHILS % (AUTO) 78 % (42-75)
[2018-08-15 07:00] VITALS: BP 96/60
[2018-08-15] MEDS: POTASSIUM CHLORIDE 20 MEQ TAB.ER.PRT PO SCH ×2 (08:57→20:53)
[2018-08-15] MEDS: FUROSEMIDE 40 MG/4 ML IV SCH (08:57)
[2018-08-15] MEDS: SERTRALINE 100MG TABLET PO SCH (08:57)
[2018-08-15] MEDS: POLYETHYLENE GLYCOL 17 GM PACKET NG SCH (09:12)
[2018-08-15] MEDS: PREGABALIN 100 MG CAPSULE PO SCH ×3 (09:36→20:53)
[2018-08-15 13:34] VITALS: BP 108/69
[2018-08-15 20:37] VITALS: BP 106/66
[2018-08-15] MEDS: IMIPRAMINE 25 MG TABLET PO SCH (20:52)
[2018-08-15] MEDS: OXYcodone IR 5MG TABLET PO PRN (21:06)
[2018-08-16 00:30] VITALS: BP 100/61
[2018-08-16] MEDS: OXYcodone IR 5MG TABLET PO PRN (05:21)
[2018-08-16] MEDS: GUAIFENESIN 200 MG TABLET PO SCH ×4 (05:21→20:34)
[2018-08-16] MEDS: ACETAMINOPHEN 500 MG TABLET PO SCH ×4 (05:21→23:40)
[2018-08-16] MEDS: KETOROLAC 30 MG/1 ML IV SCH ×4 (05:21→23:40)
[2018-08-16 06:10] LABS: ANION GAP 3 mmol/L (5-15); CALCIUM 8.5 mg/dL (8.5-10.1); CHLORIDE 105 mmol/L (98-107)
[2018-08-16 06:12] LABS: CREATININE 0.61 mg/dL (0.55-1.02)
[2018-08-16 06:14] LABS: MEAN CORPUSCULAR HEMOGLOBIN 27.1 pg (27.0-34.8); MEAN CORPUSCULAR VOLUME 84.9 fL (80-100); MEAN PLATELET VOLUME 6.8 fL (7.4-10.4); PLATELET COUNT 288 x10^3/uL (130-400); RED BLOOD COUNT 3.15 x10^6/uL (3.82-5.3); RED CELL DISTRIBUTION WIDTH 22.8 % (9.6-15.2)
[2018-08-16 06:45] LABS: BASOPHILS # (AUTO) 0.02 x10^3/uL (0-0.1); BASOPHILS % (AUTO) 1 % (0-1); EOSINOPHILS # (AUTO) 0.08 x10^3/uL (0-0.4); EOSINOPHILS % (AUTO) 2 % (1-7); LYMPHOCYTES # (AUTO) 0.47 x10^3/uL (1-3.4); LYMPHOCYTES % (AUTO) 11 % (22-44); MD SCAN; MONOCYTES # (AUTO) 0.46 x10^3/uL (0.2-0.8); MONOCYTES % (AUTO) 11 % (2-9); NEUTROPHILS # (AUTO) 3.22 x10^3/uL (1.8-6.8); NEUTROPHILS % (AUTO) 76 % (42-75)
[2018-08-16 07:01] VITALS: BP 106/66
[2018-08-16] MEDS ORDERED: METHADONE 5 MG TABLET ONE (08:11)
[2018-08-16] MEDS: HEPARIN 5,000 UNITS/ML, 1ML SQ SCH ×3 (08:19→23:39)
[2018-08-16] MEDS: PREGABALIN 100 MG CAPSULE PO SCH ×3 (08:19→20:34)
[2018-08-16] MEDS: POLYETHYLENE GLYCOL 17 GM PACKET NG SCH (08:19)
[2018-08-16] MEDS: FUROSEMIDE 40 MG/4 ML IV SCH (08:19)
[2018-08-16] MEDS: POTASSIUM CHLORIDE 20 MEQ TAB.ER.PRT PO SCH ×2 (08:20→20:34)
[2018-08-16] MEDS: METHADONE 10 MG TABLET PO SCH ×3 (08:20→23:40)
[2018-08-16] MEDS: SERTRALINE 100MG TABLET PO SCH (08:20)
[2018-08-16 13:30] VITALS: BP 124/65
[2018-08-16 20:00] VITALS: BP 112/65
[2018-08-16] MEDS: IMIPRAMINE 25 MG TABLET PO SCH (20:34)
[2018-08-17 00:49] VITALS: BP 143/74
[2018-08-17] MEDS: KETOROLAC 30 MG/1 ML IV SCH ×2 (05:53→11:22)
[2018-08-17] MEDS: GUAIFENESIN 200 MG TABLET PO SCH ×4 (05:53→21:51)
[2018-08-17] MEDS: ACETAMINOPHEN 500 MG TABLET PO SCH ×4 (05:53→23:00)
[2018-08-17 06:22] LABS: MEAN CORPUSCULAR HEMOGLOBIN 27.6 pg (27.0-34.8); MEAN CORPUSCULAR HGB CONC 32.9 g/dL (32.4-35.8); MEAN CORPUSCULAR VOLUME 83.9 fL (80-100); MEAN PLATELET VOLUME 6.7 fL (7.4-10.4); PLATELET COUNT 296 x10^3/uL (130-400); RED BLOOD COUNT 3.28 x10^6/uL (3.82-5.3); RED CELL DISTRIBUTION WIDTH 22.3 % (9.6-15.2)
[2018-08-17 06:28] LABS: ANION GAP 4 mmol/L (5-15); CALCIUM 8.6 mg/dL (8.5-10.1); CHLORIDE 105 mmol/L (98-107)
[2018-08-17 06:31] LABS: CREATININE 0.53 mg/dL (0.55-1.02)
[2018-08-17 06:40] LABS: BASOPHILS # (AUTO) 0.02 x10^3/uL (0-0.1); BASOPHILS % (AUTO) 0 % (0-1); EOSINOPHILS # (AUTO) 0.19 x10^3/uL (0-0.4); EOSINOPHILS % (AUTO) 5 % (1-7); LYMPHOCYTES # (AUTO) 0.57 x10^3/uL (1-3.4); LYMPHOCYTES % (AUTO) 14 % (22-44); MD SCAN; MONOCYTES # (AUTO) 0.43 x10^3/uL (0.2-0.8); MONOCYTES % (AUTO) 10 % (2-9); NEUTROPHILS # (AUTO) 3.01 x10^3/uL (1.8-6.8); NEUTROPHILS % (AUTO) 72 % (42-75)
[2018-08-17 07:17] VITALS: BP 105/58
[2018-08-17] MEDS: FUROSEMIDE 40 MG/4 ML IV SCH ×2 (07:59→21:50)
[2018-08-17] MEDS: METHADONE 10 MG TABLET PO SCH ×3 (08:00→21:51)
[2018-08-17] MEDS: POTASSIUM CHLORIDE 20 MEQ TAB.ER.PRT PO SCH ×2 (08:00→21:50)
[2018-08-17] MEDS: POLYETHYLENE GLYCOL 17 GM PACKET NG SCH (08:00)
[2018-08-17] MEDS: PREGABALIN 100 MG CAPSULE PO SCH ×3 (08:00→21:50)
[2018-08-17] MEDS: SERTRALINE 100MG TABLET PO SCH (08:00)
[2018-08-17] MEDS: HEPARIN 5,000 UNITS/ML, 1ML SQ SCH ×3 (08:00→16:00)
[2018-08-17 14:26] VITALS: BP 105/64
[2018-08-17 19:43] VITALS: BP 145/74
[2018-08-17] MEDS: IMIPRAMINE 25 MG TABLET PO SCH (21:50)
[2018-08-17] MEDS: HYDROcodone/APAP 10/325 MG TABLET PO PRN (22:33)
[2018-08-18] MEDS: HEPARIN 5,000 UNITS/ML, 1ML SQ SCH ×3 (00:13→16:53)
[2018-08-18 02:55] VITALS: BP 117/72
[2018-08-18] MEDS: HYDROcodone/APAP 10/325 MG TABLET PO PRN ×4 (05:47→20:45)
[2018-08-18] MEDS: GUAIFENESIN 200 MG TABLET PO SCH ×4 (05:47→22:46)
[2018-08-18] MEDS: ACETAMINOPHEN 500 MG TABLET PO SCH ×4 (05:47→22:46)
[2018-08-18 07:16] VITALS: BP 111/69
[2018-08-18] MEDS: POLYETHYLENE GLYCOL 17 GM PACKET NG SCH (09:00)
[2018-08-18] MEDS: FUROSEMIDE 40 MG/4 ML IV SCH ×2 (09:18→20:46)
[2018-08-18] MEDS: POTASSIUM CHLORIDE 20 MEQ TAB.ER.PRT PO SCH ×2 (09:20→22:46)
[2018-08-18] MEDS: METHADONE 10 MG TABLET PO SCH ×3 (09:21→22:46)
[2018-08-18] MEDS: SERTRALINE 100MG TABLET PO SCH (09:21)
[2018-08-18] MEDS: PREGABALIN 100 MG CAPSULE PO SCH ×3 (09:21→22:46)
[2018-08-18 13:12] LABS: ANION GAP 5 mmol/L (5-15); CALCIUM 8.8 mg/dL (8.5-10.1); CHLORIDE 103 mmol/L (98-107); CREATININE 0.41 mg/dL (0.55-1.02)
[2018-08-18 13:34] VITALS: BP 132/60
[2018-08-18 19:49] VITALS: BP 125/74
[2018-08-18] MEDS ORDERED: SODIUM CHLORIDE NASAL SPRAY 45ML BOTTLE NAS PRN (20:00)
[2018-08-18] MEDS: IMIPRAMINE 25 MG TABLET PO SCH (22:46)
[2018-08-19 00:34] VITALS: BP 119/68
[2018-08-19] MEDS: HEPARIN 5,000 UNITS/ML, 1ML SQ SCH ×4 (01:09→21:37)
[2018-08-19] MEDS: HYDROcodone/APAP 10/325 MG TABLET PO PRN ×5 (01:21→21:56)
[2018-08-19 05:17] LABS: ANION GAP 5 mmol/L (5-15); CALCIUM 8.5 mg/dL (8.5-10.1); CHLORIDE 103 mmol/L (98-107); CREATININE 0.41 mg/dL (0.55-1.02)
[2018-08-19] MEDS: ACETAMINOPHEN 500 MG TABLET PO SCH ×4 (05:36→23:00)
[2018-08-19] MEDS: GUAIFENESIN 200 MG TABLET PO SCH ×3 (05:36→18:12)
[2018-08-19 08:48] VITALS: BP 127/75
[2018-08-19] MEDS: POTASSIUM CHLORIDE 20 MEQ TAB.ER.PRT PO SCH ×2 (09:00→21:37)
[2018-08-19] MEDS: FUROSEMIDE 40 MG/4 ML IV SCH ×2 (09:37→21:36)
[2018-08-19] MEDS: SERTRALINE 100MG TABLET PO SCH (09:38)
[2018-08-19] MEDS: PREGABALIN 100 MG CAPSULE PO SCH ×2 (09:39→18:12)
[2018-08-19] MEDS: METHADONE 10 MG TABLET PO SCH ×2 (09:39→18:12)
[2018-08-19] MEDS: POLYETHYLENE GLYCOL 17 GM PACKET NG SCH (09:40)
[2018-08-19 13:17] VITALS: BP 117/68
[2018-08-19 19:52] VITALS: BP 148/79
[2018-08-19] MEDS: IMIPRAMINE 25 MG TABLET PO SCH (21:37)
[2018-08-20 01:07] VITALS: BP 134/78
[2018-08-20] MEDS: GUAIFENESIN 200 MG TABLET PO SCH ×5 (01:07→20:59)
[2018-08-20] MEDS: METHADONE 10 MG TABLET PO SCH ×3 (01:07→16:41)
[2018-08-20] MEDS: PREGABALIN 100 MG CAPSULE PO SCH ×3 (01:07→16:41)
[2018-08-20] MEDS: HEPARIN 5,000 UNITS/ML, 1ML SQ SCH ×3 (05:00→20:59)
[2018-08-20] MEDS: ACETAMINOPHEN 500 MG TABLET PO SCH ×4 (05:00→23:00)
[2018-08-20 06:05] LABS: CHLORIDE 102 mmol/L (98-107)
[2018-08-20 06:06] LABS: ANION GAP 4 mmol/L (5-15); CALCIUM 8.9 mg/dL (8.5-10.1); CREATININE 0.47 mg/dL (0.55-1.02)
[2018-08-20 07:35] VITALS: BP 133/83
[2018-08-20] MEDS: POLYETHYLENE GLYCOL 17 GM PACKET NG SCH (09:00)
[2018-08-20] MEDS: POTASSIUM CHLORIDE 20 MEQ TAB.ER.PRT PO SCH ×2 (09:27→20:58)
[2018-08-20] MEDS: SERTRALINE 100MG TABLET PO SCH (09:27)
[2018-08-20] MEDS: HYDROcodone/APAP 10/325 MG TABLET PO PRN ×2 (09:27→19:15)
[2018-08-20] MEDS: FUROSEMIDE 40 MG/4 ML IV SCH (09:29)
[2018-08-20] MEDS ORDERED: BUPIVACAINE/PF-EPI 0.5% 1:200K ONE (11:59)
[2018-08-20] MEDS ORDERED: FENTANYL PF 250 MCG/5ML ONE (12:06)
[2018-08-20] MEDS ORDERED: FENTANYL PF 100 MCG/2ML IV PRN (12:30)
[2018-08-20] MEDS ORDERED: OXYcodone 5 MG/5 ML ORAL.SOL UDC PO PRN (12:30)
[2018-08-20] MEDS ORDERED: ONDANSETRON 2MG/ML, 2ML IV PRN (12:30)
[2018-08-20] MEDS ORDERED: hydrALAzine 20 MG/ML, 1ML IV PRN (12:30)
[2018-08-20] MEDS ORDERED: PROMETHAZINE 25 MG/ML, 1ML IV PRN (12:30)
[2018-08-20] MEDS ORDERED: PROPOFOL 10 MG/ML, 20ML ONE (12:37)
[2018-08-20] MEDS ORDERED: CEFAZOLIN 1,000 MG ONE (12:37)
[2018-08-20] MEDS ORDERED: SUCCINYLCHOLINE 20 MG/ML, 10ML ONE (13:18)
[2018-08-20] MEDS ORDERED: ONDANSETRON 2MG/ML, 2ML ONE ×2 (13:18→13:51)
[2018-08-20] MEDS ORDERED: ROCURONIUM 10MG/ML,5ML ONE (13:18)
[2018-08-20] MEDS ORDERED: FENTANYL PF 100 MCG/2ML ONE (13:32)
[2018-08-20] MEDS ORDERED: HYDROmorphone 1 MG/ML, 1ML ONE ×2 (13:32→14:46)
[2018-08-20] MEDS ORDERED: OXYcodone 5 MG/5 ML ORAL.SOL UDC ONE (13:33)
[2018-08-20] MEDS: HYDROmorphone 2 MG/ML, 1ML IVPush PRN ×8 (13:55→14:56)
[2018-08-20] MEDS ORDERED: HYDROmorphone 2 MG/ML, 1ML ONE (14:05)
[2018-08-20] MEDS: IMIPRAMINE 25 MG TABLET PO SCH (20:59)
[2018-08-20 21:41] VITALS: BP 135/80
[2018-08-21] MEDS: PREGABALIN 100 MG CAPSULE PO SCH ×3 (00:38→16:09)
[2018-08-21] MEDS: METHADONE 10 MG TABLET PO SCH ×3 (00:38→16:10)
[2018-08-21] MEDS: HYDROcodone/APAP 10/325 MG TABLET PO PRN ×4 (00:38→16:06)
[2018-08-21 00:45] VITALS: BP 128/74
[2018-08-21] MEDS: ACETAMINOPHEN 500 MG TABLET PO SCH ×2 (05:00→09:39)
[2018-08-21] MEDS: GUAIFENESIN 200 MG TABLET PO SCH ×3 (05:35→16:10)
[2018-08-21] MEDS: HEPARIN 5,000 UNITS/ML, 1ML SQ SCH ×2 (05:35→13:00)
[2018-08-21 06:39] LABS: ANION GAP 3 mmol/L (5-15); CALCIUM 8.6 mg/dL (8.5-10.1); CHLORIDE 101 mmol/L (98-107)
[2018-08-21 07:03] VITALS: BP 128/73
[2018-08-21] MEDS: POLYETHYLENE GLYCOL 17 GM PACKET NG SCH (09:00)
[2018-08-21] MEDS: SERTRALINE 100MG TABLET PO SCH (09:37)
[2018-08-21] MEDS: POTASSIUM CHLORIDE 20 MEQ TAB.ER.PRT PO SCH (09:38)
[2018-08-21 13:12] VITALS: BP 111/68
[2018-08-21] MEDS: OXYcodone IR 5MG TABLET PO PRN (13:33)
== END 2018-08-21 16:20 | disposition home or self-care (01) | DRG 597 ==
LOC: ED 16:05 → EDIP 17:45 → 4NOR 21:02 → 3NW 08-10 06:04 → CCU 08-12 16:34 → 3NW 08-14 13:30
PROVIDERS: ADMIT Hospitalist; ATTEND Hospitalist
PROC: 3E0L4GC Introduction of Other Therapeutic Substance into Pleural Cavity, Percutaneous Endoscopic Approach (ICD-10-PCS; 2018-08-12)
PROC: 0W9900Z Drainage of Right Pleural Cavity with Drainage Device, Open Approach (ICD-10-PCS; principal; 2018-08-20 11:30)
DX: C50.919 Malignant neoplasm of unspecified site of unspecified female breast (principal); D61.810 Antineoplastic chemotherapy induced pancytopenia; J15.9 Unspecified bacterial pneumonia; J96.21 Acute and chronic respiratory failure with hypoxia; D68.69 Other thrombophilia; F11.20 Opioid dependence, uncomplicated; J91.0 Malignant pleural effusion; D63.8 Anemia in other chronic diseases classified elsewhere; E87.6 Hypokalemia; E87.70 Fluid overload, unspecified; E88.09 Other disorders of plasma-protein metabolism, not elsewhere classified; F32.9 Major depressive disorder, single episode, unspecified; G62.9 Polyneuropathy, unspecified; G89.4 Chronic pain syndrome; G89.3 Neoplasm related pain (acute) (chronic); I89.0 Lymphedema, not elsewhere classified; T45.1X5A Adverse effect of antineoplastic and immunosuppressive drugs, initial encounter; T50.2X5A Adverse effect of carbonic-anhydrase inhibitors, benzothiadiazides and other diuretics, initial encounter; Z79.01 Long term (current) use of anticoagulants; Z80.3 Family history of malignant neoplasm of breast; Z86.718 Personal history of other venous thrombosis and embolism; Z87.891 Personal history of nicotine dependence; Z90.13 Acquired absence of bilateral breasts and nipples; Z99.81 Dependence on supplemental oxygen; Z87.440 Personal history of urinary (tract) infections; Y92.89 Other specified places as the place of occurrence of the external cause; Z17.1 Estrogen receptor negative status [ER-]
CPT/HCPCS: 32555; 36415; 82945; 84145; 99285; J3490; 71045; 71046; 71260; 80048; 80053; 82040; 82962; 83605; 83615; 84703; 85025; 85651; 86140; 87040; 87070; 87081; 87205; 88112; 88305; 89051; 93005; 97163; C1729; G0378; J0690; J0692; J0696; J1170; J1644; J1885; J1940; J2250; J2405; J2704; J2710; J3010; J3370; J3480; Q9967; J0330; J2060; J7040

== ENCOUNTER 2018-08-25 05:12 | Inpatient (IN) | payer OTHER ==
[~2018-08-25] VITALS: Ht 157.5 cm; Wt 90.9 kg
[~2018-08-25 05:12] MED LIST changes: +IMIP50TA3 PO
--- NOTE | 2018-08-25 05:32 | NUR ---
PT PRESENTS TO ED W/ STAGE 4 CANCER IN L LUNG, AND PONTENTIALLY IN R. STATES NOT ABLE TO CATCH BREATH THIS AM AND ON 6L NC AT HOME. ON 6L NC AND SAT 95% HERE. SEVERE LYMPH EDEMA NOTED IN L ARM AND 3+ PITTING EDEMA IN BILATERAL LEGS. DRAINAGE CATHETER IN R UPPER CHEST FOR COLLAPSED LUNG RECENTLY. HAS BAGS AT HOME FOR DRAINAGE. ALL MONITORING APPLIED. VS OTHERWISE S. CALL LIGHT WITHIN REACH. SPOUSE AT BEDSIDE.
--- NOTE | 2018-08-25 05:43 | NUR ---
ct pending lab/creatine.
[2018-08-25] MEDS ORDERED: SODIUM CHLORIDE FLUSH 10ML SYR IVF ONE (06:00)
--- NOTE | 2018-08-25 06:09 | NUR ---
POWER PORT ON R SIDE OF CHEST ACCESSED W/ STERILE TECHNIQUE. 1 SET OF CULTURES DRAWN W/ LAB AT BEDSIDE.
[2018-08-25 06:43] LABS: ALANINE AMINOTRANSFERASE 16 U/L (12-78); ALBUMIN 2.4 g/dL (3.4-5.0); ANION GAP 6 mmol/L (5-15); CALCIUM 8.7 mg/dL (8.5-10.1); CHLORIDE 102 mmol/L (98-107); CREATININE 0.48 mg/dL (0.55-1.02)
[2018-08-25 06:44] LABS: MEAN CORPUSCULAR HEMOGLOBIN 27.9 pg (27.0-34.8); MEAN CORPUSCULAR HGB CONC 33.3 g/dL (32.4-35.8); MEAN CORPUSCULAR VOLUME 83.8 fL (80-100); MEAN PLATELET VOLUME 5.9 fL (7.4-10.4); PLATELET COUNT 404 x10^3/uL (130-400); RED BLOOD COUNT 3.09 x10^6/uL (3.82-5.3); RED CELL DISTRIBUTION WIDTH 22.2 % (9.6-15.2)
[2018-08-25 06:47] LABS: ALKALINE PHOSPHATASE 157 U/L (45-117); BILIRUBIN,TOTAL 0.4 mg/dL (0.2-1.0); TOTAL PROTEIN 6.1 g/dL (6.4-8.2); TROPONIN I < 0.015 ng/mL (0.000-0.045)
--- NOTE | 2018-08-25 07:01 | NUR ---
REC REPORT ASSUMED CARE
[2018-08-25 07:04] LABS: INTERNATIONAL NORMALIZED RATIO 1.06 (0.93-1.1); PROTHROMBIN TIME 11.1 Seconds (9.6-11.5)
[2018-08-25 07:32] LABS: BASOPHILS # (AUTO) 0.03 x10^3/uL (0-0.1); BASOPHILS % (AUTO) 0 % (0-1); EOSINOPHILS % (AUTO) 1 % (1-7); LYMPHOCYTES # (AUTO) 0.62 x10^3/uL (1-3.4); LYMPHOCYTES % (AUTO) 7 % (22-44); MD MORPH REVIEW ONLY; MONOCYTES # (AUTO) 0.61 x10^3/uL (0.2-0.8); MONOCYTES % (AUTO) 7 % (2-9); NEUTROPHILS # (AUTO) 6.98 x10^3/uL (1.8-6.8); NEUTROPHILS % (AUTO) 84 % (42-75)
[2018-08-25 07:33] LABS: ANISOCYTOSIS 1+; OVALOCYTES 1+; POLYCHROMASIA 1+
[2018-08-25 07:34] LABS: <PLATELET ESTIMATE> INCREASED; <PLT MORPHOLOGY> NORMAL PLT MORPH; TEAR DROPS 1+
[2018-08-25] MEDS ORDERED: MORPHINE SULFATE 4 MG/ML, 1ML IVPush ONE (08:00)
[2018-08-25] MEDS ORDERED: MORPHINE SULFATE 4 MG/ML, 1ML ONE (08:10)
[2018-08-25] MEDS ORDERED: PIPERACILLIN/TAZO/PMX 3.375GM 50 ML IV ONE (08:30)
[2018-08-25] MEDS ORDERED: PLEASE ENTER HEIGHT AND WEIGHT MC SCH (08:30)
[2018-08-25] MEDS ORDERED: PIPERACILLIN/TAZO/PMX 3.375GM 50 ML ONE (08:32)
[2018-08-25] MEDS ORDERED: ACETAMINOPHEN 325 MG TABLET PO PRN (09:30)
[2018-08-25] MEDS ORDERED: DOCUSATE 100 MG CAPSULE PO PRN (09:30)
[2018-08-25] MEDS ORDERED: BISACODYL 10 MG SUPP PR PRN (09:30)
[2018-08-25] MEDS ORDERED: hydrALAzine 20 MG/ML, 1ML IVPush PRN (09:30)
[2018-08-25] MEDS ORDERED: GUAIFENESIN/DM 200-20MG, 10ML UDC PO PRN (09:30)
[2018-08-25] MEDS ORDERED: POLYETHYLENE GLYCOL 17 GM PACKET PO PRN (09:30)
[2018-08-25] MEDS ORDERED: ONDANSETRON ODT 4 MG PO PRN (09:30)
[2018-08-25] MEDS ORDERED: ONDANSETRON 2MG/ML, 2ML IVPush PRN (09:30)
--- NOTE | 2018-08-25 09:40 | NUR ---
ASSUMED CARE WITH REPORT RECEIVED FROM KATALINA. HOSPITALIST AT BEDSIDE. PT HAS A DRAIN TO RIGHT LUNG WITH SMALL AMOUNT OF BLOOD TINGED FLUID. WHILE IN [place] AND NOT EXERTING HERSELF WOB OKAY.
[2018-08-25] MEDS: SERTRALINE 100MG TABLET PO SCH (09:52)
--- NOTE | 2018-08-25 09:53 | NUR ---
[place] NOT GIVEN PT STATES SHE TOOK HER HOME DOSE THIS MORNING
[2018-08-25] MEDS ORDERED: RIVAROXABAN 10 MG TABLET ONE (09:55)
[2018-08-25] MEDS ORDERED: OMNIPAQUE 350 MG/ML, 100ML BOTTLE ONE (10:25)
--- NOTE | 2018-08-25 10:30 | NUR ---
ASSISTED PT INTO WHEELCHAIR AND TO BATHROOM. PT REMAINED ON OXYGEN. TOLERATED WELL WITH MINIMAL SOB
[2018-08-25] MEDS ORDERED: HYDROcodone/APAP 10/325 MG TABLET ONE (12:13)
--- NOTE | 2018-08-25 12:17 | NUR ---
PT SITTING IN CHAIR AT SIDE OF [facility]. HAD ASSISTED HER TO SEAT. ADDITOINALLY, DISCONNECTED PLUERUAL DRAINAGE KIT FROM DRAIN LEFT SIDE OF CHEST. STATES THAT HE WAS TOLD TO BRING KIT IN BY . HE FURTHER STATES THEY ARE SUPPOSED TO CONNECT UNTIL IT STOPS DRAINING AND THEN REMOVE KIT. 300 ML OF RED TINGED FLUID NOTED IN COLLECTION BAG. AT 0900 THERE WAS APPROXIMATELY 10 ML
[2018-08-25] MEDS: HYDROcodone/APAP 10/325 MG TABLET PO PRN ×2 (12:28→20:25)
--- NOTE | 2018-08-25 12:34 | NUR ---
PT C/O 03/11 PAIN AND MEDICATED FOR SAME. PROVIDED LUNCH TRAY
--- NOTE | 2018-08-25 13:12 | NUR ---
IV MEDS AND LIBRIUM GIVEN PER ORDERS. PT NOT SHAKING AT THIS TIME. CONTINUE TO MONITOR
--- NOTE | 2018-08-25 13:14 | NUR ---
CORRECTION: INFECTIOUS DISEASE AT BEDSIDE
--- NOTE | 2018-08-25 13:14 | NUR ---
HOSPITALIST/ONCOLOGIST AT BEDSIDE SPEAKING WITH FAMILY AND ASSESSING PT
--- NOTE | 2018-08-25 14:00 | NUR ---
RECLINER CHAIR BROUGHT INTO ROOM AND PT ASSISTED TO IT
--- NOTE | 2018-08-25 14:15 | NUR ---
PALLATIVE CARE AT BEDSIDE
--- NOTE | 2018-08-25 14:51 | NUR ---
REPORT TO EYAD DE LEON
[2018-08-25 15:17] VITALS: BP 146/81
[2018-08-25] MEDS: PREGABALIN 100 MG CAPSULE PO SCH ×2 (17:32→22:21)
[2018-08-25] MEDS: METHADONE 10 MG TABLET PO SCH ×2 (17:35→22:22)
[2018-08-25 19:26] VITALS: BP 127/78
[2018-08-25] MEDS ORDERED: LORazepam 1MG TABLET ONE (20:20)
[2018-08-25] MEDS: LORazepam 1MG TABLET PO PRN (20:25)
[2018-08-25] MEDS ORDERED: IMIPRAMINE 50 MG TABLET PO SCH (21:00)
[2018-08-25] MEDS: IMIPRAMINE 25 MG TABLET PO SCH (22:21)
[2018-08-25] MEDS: DICLOFENAC SODIUM 75 MG TABLET.DR PO SCH (22:21)
[2018-08-26 02:20] VITALS: BP 147/75
[2018-08-26] MEDS: LORazepam 1MG TABLET PO PRN ×3 (05:43→21:59)
[2018-08-26] MEDS: HYDROcodone/APAP 10/325 MG TABLET PO PRN ×3 (05:44→21:59)
[2018-08-26 06:35] LABS: MEAN CORPUSCULAR HEMOGLOBIN 27.5 pg (27.0-34.8); MEAN CORPUSCULAR HGB CONC 32.8 g/dL (32.4-35.8); MEAN CORPUSCULAR VOLUME 83.7 fL (80-100); MEAN PLATELET VOLUME 6.2 fL (7.4-10.4); PLATELET COUNT 416 x10^3/uL (130-400); RED BLOOD COUNT 3.25 x10^6/uL (3.82-5.3)
[2018-08-26 06:38] LABS: ANION GAP 6 mmol/L (5-15); CALCIUM 8.9 mg/dL (8.5-10.1); CHLORIDE 102 mmol/L (98-107); CREATININE 0.49 mg/dL (0.55-1.02)
[2018-08-26 07:38] VITALS: BP 124/71
[2018-08-26 07:52] LABS: MD YES
[2018-08-26 07:53] LABS: ANISOCYTOSIS 1+; BAND#(MANUAL) 0.16 x10^3/uL; BANDS%(MANUAL) 2 % (0-7); BASOS#(MANUAL) 0.08 x10^3/uL (0-0.1); BASOS% (MANUAL) 1 % (0-1); EOS#(MANUAL) 0.08 x10^3/uL (0.0-0.4); EOS% (MANUAL) 1 % (1-7); LYMPH#(MANUAL) 0.41 x10^3/uL (1-3.4); LYMPHS% (MANUAL) 5 % (22-44); METAMYELOCYTES# (MANUAL) 0.08 x10^3/uL (0-0); METAMYELOCYTES% (MANUAL) 1 % (0-1); MONOS#(MANUAL) 0.33 x10^3/uL (0.3-2.7); MONOS% (MANUAL) 4 % (2-9); MYELOCYTES# (MANUAL) 0.25 x10^3/uL (0-0); MYELOCYTES% (MANUAL) 3 % (0-0); SEG#(MANUAL) 6.81 x10^3/uL (1.8-6.8); SEGS% (MANUAL) 83 % (42-75)
[2018-08-26 07:54] LABS: <PLATELET ESTIMATE> INCREASED; <PLT MORPHOLOGY> NORMAL PLT MORPH; OVALOCYTES 1+; POLYCHROMASIA 1+; TEAR DROPS 1+
[2018-08-26] MEDS: DICLOFENAC SODIUM 75 MG TABLET.DR PO SCH ×2 (08:04→20:44)
[2018-08-26] MEDS: PREGABALIN 100 MG CAPSULE PO SCH ×3 (08:04→20:43)
[2018-08-26] MEDS: METHADONE 10 MG TABLET PO SCH ×3 (08:04→20:43)
[2018-08-26] MEDS: SERTRALINE 100MG TABLET PO SCH (08:04)
[2018-08-26] MEDS ORDERED: RIVAROXABAN 20 MG TABLET PO SCH (09:00)
[2018-08-26 14:02] VITALS: BP 135/81
[2018-08-26] MEDS ORDERED: IPRATROPIUM 0.5 MG/2.5 ML INHA ONE (14:43)
[2018-08-26] MEDS ORDERED: ALBUTEROL/IPRATROPIUM 2.5MG/0.5MG, 3 ML NPPB PRN (15:00)
[2018-08-26 19:26] VITALS: BP 121/71
[2018-08-26] MEDS: IMIPRAMINE 25 MG TABLET PO SCH (20:44)
[2018-08-27 03:47] VITALS: BP 131/79
[2018-08-27] MEDS: LORazepam 1MG TABLET PO PRN ×2 (07:42→16:11)
[2018-08-27] MEDS: HYDROcodone/APAP 10/325 MG TABLET PO PRN ×2 (07:43→13:55)
[2018-08-27 08:05] VITALS: BP 136/78
[2018-08-27] MEDS: DICLOFENAC SODIUM 75 MG TABLET.DR PO SCH ×2 (09:21→21:26)
[2018-08-27] MEDS: METHADONE 10 MG TABLET PO SCH ×3 (09:21→21:26)
[2018-08-27] MEDS: SERTRALINE 100MG TABLET PO SCH (09:21)
[2018-08-27] MEDS: PREGABALIN 100 MG CAPSULE PO SCH ×3 (09:21→21:26)
[2018-08-27 13:27] VITALS: BP 124/82
[2018-08-27 18:45] VITALS: BP 120/70
[2018-08-27] MEDS: IMIPRAMINE 25 MG TABLET PO SCH (21:26)
[2018-08-28 03:08] VITALS: BP 125/72
[2018-08-28] MEDS ORDERED: RIVAROXABAN 20 MG TABLET PO SCH (06:00)
[2018-08-28] MEDS ORDERED: FENTANYL PF 100 MCG/2ML ONE (07:29)
[2018-08-28] MEDS ORDERED: MIDAZOLAM 1 MG/ML, 5ML ONE (07:30)
[2018-08-28] MEDS: PREGABALIN 100 MG CAPSULE PO SCH (10:57)
[2018-08-28] MEDS: SERTRALINE 100MG TABLET PO SCH (10:57)
[2018-08-28] MEDS: DICLOFENAC SODIUM 75 MG TABLET.DR PO SCH (10:57)
[2018-08-28] MEDS: METHADONE 10 MG TABLET PO SCH (10:57)
[2018-08-28 10:58] VITALS: BP 117/59
[2018-08-28] MEDS: LORazepam 1MG TABLET PO PRN (12:25)
[2018-08-28] MEDS ORDERED: LORA-446 PO (13:15)
[2018-08-28] MEDS: HYDROcodone/APAP 10/325 MG TABLET PO PRN (15:24)
== END 2018-08-28 15:29 | disposition home health service (06) | DRG 166 ==
LOC: ED 08:21 → EDIP 08:22 → ED 08:32 → 3NW 14:38
PROVIDERS: ADMIT Internal Medicine; ATTEND Internal Medicine
PROC: 0B9J8ZZ Drainage of Left Lower Lung Lobe, Via Natural or Artificial Opening Endoscopic (ICD-10-PCS; principal; 2018-08-28 08:00)
DX: J96.21 Acute and chronic respiratory failure with hypoxia (principal); D61.810 Antineoplastic chemotherapy induced pancytopenia; J18.0 Bronchopneumonia, unspecified organism; F11.20 Opioid dependence, uncomplicated; I82.622 Acute embolism and thrombosis of deep veins of left upper extremity; J91.0 Malignant pleural effusion; D63.8 Anemia in other chronic diseases classified elsewhere; F32.9 Major depressive disorder, single episode, unspecified; F41.9 Anxiety disorder, unspecified; Z51.5 Encounter for palliative care; G62.9 Polyneuropathy, unspecified; G89.3 Neoplasm related pain (acute) (chronic); G89.4 Chronic pain syndrome; I89.0 Lymphedema, not elsewhere classified; T45.1X5A Adverse effect of antineoplastic and immunosuppressive drugs, initial encounter; Z15.01 Genetic susceptibility to malignant neoplasm of breast; Z17.1 Estrogen receptor negative status [ER-]; Z79.01 Long term (current) use of anticoagulants; Z80.9 Family history of malignant neoplasm, unspecified; Z85.3 Personal history of malignant neoplasm of breast; Z90.13 Acquired absence of bilateral breasts and nipples; Z88.8 Allergy status to other drugs, medicaments and biological substances
CPT/HCPCS: 36415; 84145; J7620; 31622; 31624; 71045; 71275; 80048; 80053; 83605; 83880; 84484; 85025; 85610; 85730; 87040; 87070; 87205; 93005; 94640; 99152; 99153; G0378; J2250; J2543; J3010; Q9967